=== PATIENT | female | born 1960 | race Caucasian/White ===

== ENCOUNTER → 2018-02-16 16:01 | Outpatient (CLI) | payer BC, SELFPAY | PROVIDERS: Family Provider Internal Medicine; PCP Internal Medicine; Visit Provider Obstetrics & Gynecology | DX: Z12.31 Encounter for screening mammogram for malignant neoplasm of breast (principal) | CPT/HCPCS: 77063; 77067 ==

== ENCOUNTER → 2018-05-03 08:57 | Outpatient (CLI) | payer BC, SELFPAY ==
[2018-05-03 10:10] LABS: ALB/GLOB Ratio 1.1 RATIO (0.9-2.4); AST(SGOT) 18 U/L (15-37); Alanine Aminotransfer ALT/SGPT 29 U/L (13-56); Albumin, Serum 3.7 g/dL (3.2-5.0); Alkaline Phosphatase 75 U/L (45-117); Anion Gap 7 (5-15); BUN 14 mg/dL (7-18); BUN/Creat Ratio 18.1 RATIO (10-20); Calcium,Total 8.9 mg/dL (8.5-10.1); Chloride 108 mmol/L (98-107); Cholesterol 153 mg/dL (200); Creatinine, Serum 0.77 mg/dL (0.55-1.02); EST Glomerular Filtration Rate 82 mL/min (>60); Est Glom Filt Rate - Afr Amer 99 mL/min (>60); Globulin 3.4 g/dL (2.2-4.2); Glucose 124 mg/dL (74-106); High Density Lipoprotein 50 mg/dL; Potassium 4.1 mmol/L (3.5-5.1); Protein, Total 7.1 g/dL (6.4-8.2); Sodium Level 143 mmol/L (136-145); Triglycerides 121 mg/dL; Very Low Density Lipoprotein 24 mg/dL (5-40)
== END ==
PROVIDERS: Family Provider Internal Medicine; PCP Internal Medicine; Referring Provider Internal Medicine; Visit Provider Internal Medicine
DX: E78.5 Hyperlipidemia, unspecified (principal)
CPT/HCPCS: 36415; 80053; 80061

== ENCOUNTER → 2018-08-18 07:53 | Outpatient (CLI) | payer OTHER, SELFPAY ==
[2018-08-09 08:10] VITALS: BMI 30.4
--- NOTE | 2018-08-18 08:50 | BD_ITS ---
STUDY: DUAL ENERGY X-RAY ABSORPTIOMETRY / DXA REASON FOR EXAM: Female, 58 years old. The patient is postmenopausal. TECHNIQUE: Bone Mineral Density (BMD) measurements of lumbar spine and bilateral hips were obtained. COMPARISON: None. FINDINGS: Lumbar Spine (L1-L4): g/cm2 (1.196) / T-score (0.1) / Z-score (1.1) Findings are suggestive of normal bone density with a low fracture risk. Left Femur Total: g/cm2 (0.970) / T-score (-0.3) / Z-score (0.5) Left Femoral Neck: g/cm2 (0.911) / T-score (-0.9) / Z-score (0.2) Right Femur Total: g/cm2 (0.908) / T-score (-0.8) / Z-score (0.0) Right Femoral Neck: g/cm2 (0.897) / T-score (-1.0) / Z-score (0.1) BD/Dexa Bone Density Study IMPRESSION: The patient is considered normal as outlined below according to World [employer] Organization (WHO) criteria with a low fracture risk. Reference Information: The T-score is the number of standard deviations above or below the standard which is normal for young adults at their peak bone mineral density. The World Health Organization (WHO) interprets the T-scores as follows: Above -1 Normal bone density Between -1 and -2.5 Osteopenia Equal to / or below -2.5 Osteoporosis As a practical clinical guideline, osteopenia may be graded as follows: Mild -1 through -1.5 Moderate -1.6 through -2.0 Severe -2.1 through -2.4 The Z-score is the number of standard deviations above or below age-matched controls. A Z-score of less than -1.5 would be considered abnormal. References: 1. NIH Osteoporosis and Related Bone Diseases http://www.osteo.org 2. International Society for Clinical Densitometry http://www.iscd.org 3. National Osteoporosis Foundation http://www.nof.org Electronically Signed: Kirk Eugene MD at 9:55 EST , Service support ,
== END ==
PROVIDERS: Family Provider Internal Medicine; PCP Internal Medicine; Referring Provider Internal Medicine; Visit Provider Internal Medicine
DX: Z78.0 Asymptomatic menopausal state (principal)
CPT/HCPCS: 77080

== ENCOUNTER → 2019-02-28 07:24 | Outpatient (CLI) | payer OTHER, SELFPAY ==
[2018-12-08 16:38] VITALS: BMI 30.4
[2019-02-21 08:07] VITALS: BMI 30.4
--- NOTE | 2019-02-28 07:30 | BI_ITS ---
MAMMOGRAPHY - BILATERAL SCREENING - CAD and RASHARD IMAGES REASON FOR EXAM: Female, 59 years old. Routine annual screening examination. PERTINENT HISTORY: Non-contributory. TECHNIQUE: Digital examination. Mediolateral oblique (MLO) and craniocaudad (CC) views of both breasts were obtained. CAD: CAD was performed on this study. Rashard images were reviewed. COMPARISON: None. FINDINGS: Breast Composition: There are scattered areas of fibroglandular density. There is a lobulated 8 mm partially obscured isodense mass in the superior medial, far posterior aspect of the right breast. Further workup is indicated. A 6 mm nodular masslike density is seen laterally in the right breast and requires additional workup. A 7 mm nodular density is seen in the medial, far anterior aspect of the right breast and requires additional workup. A 12 mm nodular masslike density in the superior aspect of the left breast is noted. Further workup is indicated. Benign round calcifications are seen in the left breast. Focal fibroglandular densities are noted in the left breast. No other significant abnormalities are identified. CAD and Rashard were reviewed. BI/SCREEN MAMM (CAD) W/RASHARD BILAT IMPRESSION: Further imaging evaluation recommended, as described above. The patient should return for LM views of the right and left breast as well as spot compression CC and MLO views of the right breast mass and right and left breast nodular masslike densities. An ultrasound will probably also be needed. ASSESSMENT CATEGORY: BIRADS Category 0: Incomplete. Need additional imaging evaluation. A letter regarding these results will be sent to the patient by the facility within 30 days. FOLLOW UP RECOMMENDATION: Additional Views are Recommended. (E) Approximately 10% of breast cancers are not detected by mammography. A normal mammogram should not delay biopsy of a clinically suspicious abnormality. [id number] Electronically Signed: Radha Kendall DO at 21:15 EDT Tel , Service support ,
== END ==
PROVIDERS: Family Provider Internal Medicine; PCP Internal Medicine; Referring Provider Internal Medicine; Visit Provider Internal Medicine
DX: Z12.31 Encounter for screening mammogram for malignant neoplasm of breast (principal)
CPT/HCPCS: 77063; 77067

== ENCOUNTER → 2019-03-03 08:49 | Outpatient (CLI) | payer OTHER, SELFPAY ==
[2019-02-21 08:07] VITALS: BMI 30.4
--- NOTE | 2019-03-03 08:50 | BI_ITS ---
MAMMOGRAPHY - BILATERAL DIAGNOSTIC REASON FOR EXAM: Female, 59 years old. Mammographic density PERTINENT HISTORY: No family history TECHNIQUE: Digital examination. Mediolateral oblique (MLO) and craniocaudad (CC) views of both breasts were obtained with spot compression. CAD: CAD was performed on this study. COMPARISON: 02/28/2019 FINDINGS: Breast Composition: There are scattered areas of fibroglandular density. Focal prominence visualized on both sides in the breast parenchyma persists upon spot compression mammogram bilaterally. Correlation with sonogram on the right side demonstrates 2 hypoechoic densities likely due to benign type hypoechoic nodules along the 10:00, and also 9:00 axis. Correlation with sonogram on the left side demonstrates no definite solid lesion, but with retroareolar ductal ectasia. No other significant abnormalities are identified. BI/DIAG MAMM W/CAD, BILAT IMPRESSION: 2 hypoechoic nodules on the right side, likely benign. There is ductal ectasia on the left. ASSESSMENT CATEGORY: BIRADS Category 3: Probably Benign - Short-Interval Follow-up Suggested. A letter regarding these results will be sent to the patient by the facility within 30 days. FOLLOW UP RECOMMENDATION: Follow up recommended within 6 months with bilateral repeated mammogram and sonogram. (C) Approximately 10% of breast cancers are not detected by mammography. A normal mammogram should not delay biopsy of a clinically suspicious abnormality. Electronically Signed: Tawanda Watson MD at 15:37 EDT Tel [phone], Service support ,
--- NOTE | 2019-03-03 08:50 | US_ITS ---
STUDY: ULTRASOUND BREAST - RIGHT REASON FOR EXAM: Female, 59 years old. Mammographic density TECHNIQUE: Axial and longitudinal images of the RIGHT breast were performed with a high resolution ultrasound transducer. COMPARISON: 02/28/2019. FINDINGS: RIGHT Breast: Hypoechoic nodule identified along the 10:00 axis, 5 cm from nipple, measuring 8 x 7 x 4 mm. Hypoechoic nodule identified along the 9:00 axis, extending from the nipple, measuring 4 x 6 x 5 mm. No other focal abnormality visualized on the right side. IMPRESSION: 2 hypoechoic nodules on the right side, and six-month follow-up with repeated sonogram is recommended to ensure non progression. ASSESSMENT CATEGORY: BIRADS Category 3: Probably Benign - Short-Interval Follow-up Suggested. A letter regarding these results will be sent to the patient by the facility within 30 days. Electronically Signed: Tawanda Watson MD at 11:51 EDT Tel [phone], Service support , STUDY: ULTRASOUND BREAST - LEFT REASON FOR EXAM: Female, 59 years old. Mammographic density TECHNIQUE: Axial and longitudinal images of the LEFT breast were performed with a high resolution ultrasound transducer. COMPARISON: 02/28/2019. FINDINGS: LEFT Breast: Sonogram of the left upper breast demonstrates extensive ductal ectasia in the retroareolar region, predominantly along the upper outer quadrant. No discrete nodule or cystic lesion visualized. US/Breast Complete Unilateral IMPRESSION: Extensive ductal ectasia predominantly along the upper outer quadrant. ASSESSMENT CATEGORY: BIRADS Category 3: Probably Benign - Short-Interval Follow-up Suggested. A letter regarding these results will be sent to the patient by the facility within 30 days. Electronically Signed: Tawanda Watson MD at 11:54 EDT Tel [phone], Service support ,
== END ==
PROVIDERS: Family Provider Internal Medicine; PCP Internal Medicine; Referring Provider Internal Medicine; Visit Provider Internal Medicine
DX: N63.10 Unspecified lump in the right breast, unspecified quadrant (principal); N60.42 Mammary duct ectasia of left breast
CPT/HCPCS: 76641; 76642; 77066

== ENCOUNTER → 2019-03-17 13:31 | Outpatient (CLI) | payer OTHER, SELFPAY ==
--- NOTE | 2019-03-17 | BRBX_PTH ---
PATIENT: MELYSSA HERNANDEZ LOC: [facility] U#:[id number] AGE/SX: 65/F ROOM: RE03/17/[address]: Dr. Alanis Howard MD : 1960 BED: DIS: SPEC #: [id number] RECD: 03/17/19 13:49 STATUS: GWEN REIván #: [id number] ANA: 03/17/19 00:[address]: Alanis Howard DEPT: SURGICAL PATHOLOGY RECD BY: Jovanni Vega ENTERED: 03/17/19 13:49 SP TYPE: BREAST BX OTHR DR: Dr. Roberto Murray MD Tissues: Right breast, NOS Procedures: Surgery Specimen Level IV HEADER OPERATION: Ultrasound-guided right breast biopsy PRE-OP DIAGNOSIS: Breast mass, right TISSUE SUBMITTED: Right breast FIXATION TIME: 9.5 hours MICROSCOPIC DIAGNOSIS Right breast, ultrasound-guided core biopsy: Fibroadenoma. Negative for atypia or malignancy. SJ:delonte 03/18/19 MICROSCOPIC DESCRIPTION Slides are reviewed. GROSS DESCRIPTION Received in fixative is one container labeled with the patient's name and designated right breast. The specimen consists of multiple elongated fragments of huynh-yellow fibroadipose tissue that in aggregate measure 1.5 x 1 x 0.1 cm. The entire specimen is submitted in one cassette. / CHERI:delonte 03/17/19 TC:1 CPT: 70547
[2019-03-17 10:08] VITALS: BMI 30.4
== END ==
PROVIDERS: Family Provider Internal Medicine; PCP Internal Medicine; Referring Provider Surgery; Visit Provider Surgery
DX: N63.10 Unspecified lump in the right breast, unspecified quadrant (principal)
CPT/HCPCS: 88305

== ENCOUNTER → 2019-06-10 08:51 | Outpatient (CLI) | payer OTHER, SELFPAY ==
[2019-03-17 10:08] VITALS: BMI 30.4
[2019-06-10 10:38] LABS: Absolute Lymphocyte Count 2.04 X10^3/uL (0.83-4.51); Absolute Neutrophil Count 3.3 X10^3/uL (2.0-7.7); Basophil# 0.03 X10^3/uL; Basophil% 0.5 % (0-1); Eosinophils% 1.7 % (0-5); Hematocrit 43.7 % (37-47); Hemoglobin 14.9 g/dL (12.0-15.0); Lymphocyte # 2.04 X10^3/ul (4.0); Lymphocyte % 34.6 % (19-41); Mean Corp Hgb Conc 34.1 g/dL (32-36); Mean Corpuscular Hgb 30.4 pg (27.0-32.0); Mean Corpuscular Volume 89.2 fL (81-99); Mean Platelet Vol. 11.1 fl (6.2-12.0); Monocyte# 0.41 X10^3/uL; NRBC Flagged by Analyzer 0 % (0-5); Platelet Count 198 K/mm3 (150-450); RBC Distribution Width CV 11.9 % (11.6-14.6); RBC Distribution Width SD 38.3 fl (35.1-43.9); White Blood Count 5.9 K/mm3 (4.4-11.0)
[2019-06-10 11:09] LABS: ALB/GLOB Ratio 1.2 RATIO (0.9-2.4); AST(SGOT) 16 U/L (15-37); Alanine Aminotransfer ALT/SGPT 21 U/L (13-56); Albumin, Serum 3.8 g/dL (3.2-5.0); Alkaline Phosphatase 75 U/L (45-117); Anion Gap 8 (5-15); BUN 15 mg/dL (7-18); BUN/Creat Ratio 18.2 RATIO (10-20); Calcium,Total 9.4 mg/dL (8.5-10.1); Chloride 105 mmol/L (98-107); Cholesterol 168 mg/dL (200); Creatinine, Serum 0.82 mg/dL (0.55-1.02); EST Glomerular Filtration Rate 76 mL/min (>60); Est Glom Filt Rate - Afr Amer 92 mL/min (>60); Globulin 3.3 g/dL (2.2-4.2); Glucose 106 mg/dL (74-106); High Density Lipoprotein 50 mg/dL; Protein, Total 7.1 g/dL (6.4-8.2); Sodium Level 140 mmol/L (136-145); Triglycerides 133 mg/dL; Very Low Density Lipoprotein 27 mg/dL (5-40)
== END ==
PROVIDERS: Family Provider Internal Medicine; PCP Internal Medicine; Referring Provider Internal Medicine; Visit Provider Internal Medicine
DX: L66.1 Lichen planopilaris (principal); I10 Essential (primary) hypertension; E78.5 Hyperlipidemia, unspecified
CPT/HCPCS: 36415; 80053; 80061; 85025

== ENCOUNTER → 2019-07-23 09:12 | Outpatient (CLI) | payer OTHER, SELFPAY ==
[2019-06-13 08:20] VITALS: BMI 30.4
[2019-07-23 10:41] LABS: Anion Gap 6 (5-15); BUN 11 mg/dL (7-18); BUN/Creat Ratio 12.9 RATIO (10-20); Calcium,Total 9.2 mg/dL (8.5-10.1); Chloride 109 mmol/L (98-107); Creatinine, Serum 0.85 mg/dL (0.55-1.02); EST Glomerular Filtration Rate 73 mL/min (>60); Est Glom Filt Rate - Afr Amer 88 mL/min (>60); Glucose 118 mg/dL (74-106); Sodium Level 143 mmol/L (136-145)
== END ==
PROVIDERS: Family Provider Internal Medicine; PCP Internal Medicine; Referring Provider Internal Medicine; Visit Provider Internal Medicine
DX: I10 Essential (primary) hypertension (principal)
CPT/HCPCS: 36415; 80048

== ENCOUNTER → 2019-12-12 08:30 | Outpatient (CLI) | payer OTHER, SELFPAY ==
[2019-12-12 08:09] VITALS: BMI 30.4
[2019-12-12 13:38] LABS: Anion Gap 7 (5-15); BUN 18 mg/dL (7-18); BUN/Creat Ratio 22.2 RATIO (10-20); Calcium,Total 9.3 mg/dL (8.5-10.1); Chloride 107 mmol/L (98-107); Creatinine, Serum 0.81 mg/dL (0.55-1.02); EST Glomerular Filtration Rate 77 mL/min (>60); Est Glom Filt Rate - Afr Amer 93 mL/min (>60); Glucose 103 mg/dL (74-106); Potassium 3.9 mmol/L (3.5-5.1); Sodium Level 141 mmol/L (136-145)
== END ==
PROVIDERS: PCP Internal Medicine; Visit Provider Internal Medicine
DX: I10 Essential (primary) hypertension (principal)
CPT/HCPCS: 80048

== ENCOUNTER → 2020-03-08 17:00 | Outpatient (CLI) | payer OTHER, SELFPAY ==
[2020-02-27 16:36] VITALS: BMI 30.4
--- NOTE | 2020-03-08 16:59 | BI_ITS ---
MAMMOGRAPHY - BILATERAL SCREENING REASON FOR EXAM: Female, 60 years old. Routine annual screening examination. PERTINENT HISTORY: Non-contributory. TECHNIQUE: Digital bilateral breast rashard (3D mammographic acquisition) in the CC and MLO projections. 2-D mediolateral oblique (MLO) and craniocaudad (CC) views of both breasts were obtained. CAD: Full Field Digital Mammography with Computer Added Detection was performed. COMPARISON: Comparison is made with prior study dated 03/03/2019 and 02/28/2019. FINDINGS: Breast Composition: The breasts are heterogeneously dense, which may obscure small masses. There are no dominant masses or suspicious calcifications. A tissue clip marker is now seen in the upper slightly lateral aspect of the right breast from prior ultrasound-guided biopsy. No other significant abnormalities are identified. There has been no significant change since the prior study. BI/SCREEN MAMM (CAD) W/RASHARD BILAT IMPRESSION: Stable bilateral screening mammogram. Yearly follow-up mammogram recommended. (A) ASSESSMENT CATEGORY: BIRADS Category 2: Benign. A letter regarding these results will be sent to the patient by the facility within 30 days. Approximately 10% of breast cancers are not detected by mammography. A normal mammogram should not delay biopsy of a clinically suspicious abnormality. [id number] Electronically Signed: Kirk Eugene, at 8:52 EDT , Service support ,
== END ==
PROVIDERS: PCP Internal Medicine; Referring Provider Obstetrics & Gynecology; Visit Provider Obstetrics & Gynecology
DX: Z12.31 Encounter for screening mammogram for malignant neoplasm of breast (principal)
CPT/HCPCS: 77063; 77067

== ENCOUNTER → 2020-04-16 08:33 | Outpatient (CLI) | payer OTHER, SELFPAY ==
[2020-04-16 08:16] VITALS: BMI 30.4
[2020-04-16 12:14] LABS: Absolute Lymphocyte Count 1.62 X10^3/uL (0.83-4.51); Basophil# 0.04 X10^3/uL; Basophil% 0.6 % (0-1); Eosinophil# 0.06 X10^3/uL; Hematocrit 41.4 % (37-47); Hemoglobin 14.7 g/dL (12.0-15.0); Lymphocyte # 1.62 X10^3/ul (4.0); Mean Corp Hgb Conc 35.5 g/dL (32-36); Mean Platelet Vol. 11.5 fl (6.2-12.0); Monocyte# 0.45 X10^3/uL; Monocyte% 7.2 % (0-10); NRBC Flagged by Analyzer 0 % (0-5); Neutrophil # 4.04 X10^3/uL (2.7-7.7); Platelet Count 162 K/mm3 (150-450); RBC Distribution Width CV 12.8 % (11.6-14.6); RBC Distribution Width SD 40.6 fl (35.1-43.9); Red Blood Count 4.45 M/mm3 (4.2-5.4); White Blood Count 6.2 K/mm3 (4.4-11.0)
[2020-04-16 13:00] LABS: AST(SGOT) 10 U/L (15-37); Alanine Aminotransfer ALT/SGPT 26 U/L (13-56); Albumin, Serum 3.7 g/dL (3.2-5.0); Alkaline Phosphatase 59 U/L (45-117); Anion Gap 5 (5-15); BUN 14 mg/dL (7-18); BUN/Creat Ratio 17.8 RATIO (10-20); Calcium,Total 8.9 mg/dL (8.5-10.1); Chloride 108 mmol/L (98-107); Cholesterol 168 mg/dL (200); Creatinine, Serum 0.79 mg/dL (0.55-1.02); EST Glomerular Filtration Rate 80 mL/min (>60); Est Glom Filt Rate - Afr Amer 96 mL/min (>60); Globulin 3.6 g/dL (2.2-4.2); Glucose 98 mg/dL (74-106); High Density Lipoprotein 71 mg/dL; Potassium 3.8 mmol/L (3.5-5.1); Protein, Total 7.3 g/dL (6.4-8.2); Sodium Level 140 mmol/L (136-145); Triglycerides 145 mg/dL; Very Low Density Lipoprotein 29 mg/dL (5-40)
== END ==
PROVIDERS: PCP Internal Medicine; Visit Provider Internal Medicine
DX: E78.5 Hyperlipidemia, unspecified (principal); I10 Essential (primary) hypertension
CPT/HCPCS: 36415; 80053; 80061; 85025

== ENCOUNTER → 2020-09-07 14:17 | Outpatient (CLI) | payer OTHER, SELFPAY ==
[2020-07-17 08:06] VITALS: BMI 32.1
== END ==
PROVIDERS: PCP Internal Medicine; Referring Provider Nurse Practitioner Family; Visit Provider Nurse Practitioner Family
DX: Z11.59 Encounter for screening for other viral diseases (principal)
CPT/HCPCS: 87635; U0005; U0003

== ENCOUNTER → 2020-10-16 08:25 | Outpatient (CLI) | payer OTHER, SELFPAY ==
[2020-10-16 08:07] VITALS: BMI 32.5
[2020-10-16 12:51] LABS: Anion Gap 7 (5-15); BUN 12 mg/dL (7-18); BUN/Creat Ratio 15.3 RATIO (10-20); Calcium,Total 9.1 mg/dL (8.5-10.1); Chloride 110 mmol/L (98-107); Creatinine, Serum 0.78 mg/dL (0.55-1.02); EST Glomerular Filtration Rate 80 mL/min (>60); Est Glom Filt Rate - Afr Amer 97 mL/min (>60); Glucose 119 mg/dL (74-106); Sodium Level 143 mmol/L (136-145)
== END ==
PROVIDERS: PCP Internal Medicine; Referring Provider Internal Medicine; Visit Provider Internal Medicine
DX: I10 Essential (primary) hypertension (principal)
CPT/HCPCS: 36415; 80048

== ENCOUNTER → 2020-11-05 08:50 | Outpatient (CLI) | payer OTHER, SELFPAY ==
[2020-10-16 08:07] VITALS: BMI 32.5
--- NOTE | 2020-11-05 08:52 | CDU_ITS ---
Reason For Study: CAROTID BRUIT Rt. Velocities/BP Lt. Velocities/BP Prox CCA 90.7/19.0 cm/sec. Prox CCA 107.6/27.2 cm/sec. Mid CCA 88.1/24.2 cm/sec. Mid CCA 93.0/23.6 cm/sec. Dist CCA 66.0/13.8 cm/sec. Dist CCA 82.0/25.4 cm/sec. Prox ICA 79.4/28.6 cm/sec. Prox ICA 76.0/19.5 cm/sec. Mid ICA 101.6/33.8 cm/sec. Mid ICA 91.6/37.6 cm/sec. Dist ICA 139.6/54.0 cm/sec. Dist ICA 107.6/44.9 cm/sec. Rt. ICA/CCA = 139.6/90.7=1.5. Lt. ICA/CCA = 107.6/107.6=1.0. Prox ECA 92.0/12.5 cm/sec. Prox ECA 77.2/14.6 cm/sec. Rt. Vert. 32.1/13.4 cm/sec. Lt. Vert. 58.4/22.8 cm/sec. Right Extracranial There is intimal thickening but no significant atherosclerotic plaque noted in the right common carotid artery. There is intimal thickening but no significant atherosclerotic plaque noted in the right internal carotid artery. The tortuous nature of the right internal carotid artery may result in flow velocities overestimating the degree of stenosis. There is no significant atherosclerotic plaque noted in the right external carotid artery. Antegrade flow is noted in the right vertebral artery. Left Extracranial There is intimal thickening but no significant atherosclerotic plaque noted in the left common carotid artery. There is intimal thickening but no significant atherosclerotic plaque noted in the left internal carotid artery. The tortuous nature of the left internal carotid artery may result in flow velocities overestimating the degree of stenosis. There is no significant atherosclerotic plaque noted in the left external carotid artery. Antegrade flow is noted in the left vertebral artery. Procedure Carotid Duplex [id number]. Exam performed in department. VL/Carotid Duplex Ultrasound Interpretation Summary Intimal thickening but no hemodynamically significant plaque of the right inter nal carotid artery Tortuosity of the right internal carotid artery especially distally with increa sed velocity at 139 cm second peak slight flow consistent with 50 to 69% stenosis but this may be a n overestimation secondary to tortuosity. No significant plaque identified. Less than 50% stenosis right external carotid artery Intimal thickening left proximal internal carotid artery with less than 50% lee nosis Less than 50% stenosis left external carotid artery Patent antegrade vertebrals bilaterally Ordering Physician: Roberto Murray Referring Physician: Roberto Murray Performed By: Zenaida Joyner, RDREMA, RVT
== END ==
PROVIDERS: PCP Internal Medicine; Referring Provider Internal Medicine; Visit Provider Internal Medicine
DX: R09.89 Other specified symptoms and signs involving the circulatory and respiratory systems (principal); I77.9 Disorder of arteries and arterioles, unspecified
CPT/HCPCS: 93880

== ENCOUNTER → 2021-03-27 16:12 | Outpatient (CLI) | payer OTHER, SELFPAY ==
--- NOTE | 2021-03-27 16:14 | BI_ITS ---
MAMMOGRAPHY - BILATERAL SCREENING REASON FOR EXAM: Female, 61 years old. Routine annual screening examination. PERTINENT HISTORY: Non-contributory. TECHNIQUE: Digital bilateral breast rashard (3D mammographic acquisition) in the CC and MLO projections. 2-D mediolateral oblique (MLO) and craniocaudad (CC) views of both breasts were obtained. CAD: Full Field Digital Mammography with Computer Added Detection was performed. COMPARISON: Comparison is made with prior study dated 03/08/2020 and 03/03/2019. FINDINGS: Breast Composition: The breasts are heterogeneously dense, which may obscure small masses. There are no dominant masses or suspicious calcifications. A tissue clip marker is once again seen in the upper slightly lateral aspect of the right breast [history of prior ultrasound-guided biopsy.] No other significant abnormalities are identified. There has been no significant change since the prior study. BI/SCRN MAMM (CAD)W/RASHARD BILAT IMPRESSION: Stable bilateral screening mammogram. Yearly follow-up mammogram recommended. (A) ASSESSMENT CATEGORY: BIRADS Category 2: Benign. A letter regarding these results will be sent to the patient by the facility within 30 days. Approximately 10% of breast cancers are not detected by mammography. A normal mammogram should not delay biopsy of a clinically suspicious abnormality. [id number] Electronically Signed: Kirk Eugene MD at 7:56 EDT , Service support ,
== END ==
PROVIDERS: PCP Internal Medicine; Referring Provider Obstetrics & Gynecology; Visit Provider Obstetrics & Gynecology
DX: Z12.31 Encounter for screening mammogram for malignant neoplasm of breast (principal)
CPT/HCPCS: 77063; 77067

== ENCOUNTER 2021-05-13 07:49 | Day surgery (SDC) | payer OTHER, SELFPAY ==
[2021-05-13] VITALS (7 sets, daily range): BP systolic 89–118; BP diastolic 58–76; PULSE 50–84; RESP 16–18; TEMP 35.7–36.2; O2SAT 96–100; BMI 31.2
--- NOTE | 2021-05-13 | COLBX_PTH ---
PATIENT: MELYSSA HERNANDEZ LOC: [facility] U#:[id number] AGE/SX: 61/F ROOM: RE05/13/[address]: Dr. Alanis Howard MD : 1960 BED: DIS: 05/13/2021 SPEC #: [id number] RECD: 05/13/21 11:44 STATUS: GWEN RODOLFO #: [id number] ANA: 05/13/21 00:[address]: Alanis Howard DEPT: SURGICAL PATHOLOGY RECD BY: Jovanni Vega ENTERED: 05/13/21 11:45 SP TYPE: COLON BX OT DR: Dr. Roberto Murray MD Tissues: A - Sigmoid colon biopsy B - Sigmoid colon biopsy Procedures: Surgery Specimen Level IV HEADER OPERATION: Colonoscopy ? open access (MAC) PRE-OP DIAGNOSIS: Screening for colon cancer TISSUE SUBMITTED: A ? Sigmoid polyp biopsy, B - Sigmoid polyp biopsy #2 MICROSCOPIC DIAGNOSIS A. Sigmoid colon polyp, biopsy: Tubular adenoma. B. Sigmoid colon polyp #2, biopsy: Focal hyperplastic change. AM:delonte 05/14/2021 MICROSCOPIC DESCRIPTION Slides are reviewed. GROSS DESCRIPTION A - Received in fixative is one container labeled with the patient's name and designated sigmoid polyp biopsy. The specimen consists of one irregular fragment of light huynh soft tissue that measures 0.4 x 0.2 x 0.1 cm. The specimen is totally submitted in one cassette. B - Received in fixative is one container labeled with the patient's name and designated sigmoid polyp biopsy #2. The specimen consists of one irregular fragment of light huynh soft tissue that measures 0.3 x 0.3 x 0.1 cm. The specimen is totally submitted in one cassette. / SJ:delonte 05/13/21 TC:5 [facility]: [id number] x2
--- NOTE | 2021-05-13 07:55 | HP.PCM_ITS ---
HPI - General HPI Narrative MELYSSA HERNANDEZ, is a 61 F who presents for a screening colonoscopy. Patient had a previous colonoscopy 10 years ago which she states she had 1 benign polyp at that time. Patient denies any family history of colon cancer. Patient has bowel movements daily denies any blood. Denies any chronic abdominal pain /nausea/vomiting/reflux. [facility] Medical History (Updated 05/13/21 @ 07:[address] Alanis Howard MD) Health care maintenance Hemorrhoids Hyperlipidemia Hypertension Lichen amyloidosus Lichen planopilaris Right knee pain Wears contact lenses Wears hearing aid Home Medications multivitamin 1 tab PO QDAY 02/16/18 [History Last Taken Unknown] hydroxychloroquine 200 mg tablet 200 mg PO BID 02/27/20 [History Last Taken Unknown] lactobacillus combination no.9 4 billion cell capsule 4,000 mmu cells PO DAILY 02/27/20 [History Last Taken Unknown] lisinopril 20 mg tablet 20 mg PO DAILY #90 tab 07/05/20 [Rx Last Taken Unknown] doxycycline hyclate 20 mg tablet 100 mg PO DAILY tablet 10/16/20 [History Last Taken Unknown] apremilast 30 mg tablet 30 mg PO ONCE tab 04/01/21 [History Last Taken Unknown] aspirin 81 mg tablet,delayed release 81 mg PO DAILY 04/01/21 [History Last Taken Unknown] clobetasol 0.05 % topical cream 1 applic TOPICAL DAILY 04/01/21 [History Last Taken Unknown] rosuvastatin [Crestor] 5 mg PO DAILY 05/08/21 [History Last Taken Unknown] Allergy/AdvReac Type Severity Reaction Status Date / Time Penicillins Allergy Intermediate Hives Verified 05/08/21 09:49 Tetracyclines Allergy Intermediate Nausea Verified 05/08/21 09:49 Family History Mother Blood clot in vein High cholesterol Hypertension Skin cancer Grandmother Colon cancer Father Myocardial infarction High cholesterol Hypertension Heart disease Surgical History History of hysterectomy History of right breast biopsy (~03/2019) Social History Smoking Status: Never smoker alcohol intake: current alcohol intake frequency: a few times a month Alcohol type: wine substance use type: does not use caffeine: Yes what type of physical activity do you participate in: walking frequency: 3-4 times per week seatbelt use: always do you feel safe at home: Yes additional social history: -[place]- Retired Patient is a oil field laborer Past Medical/Surgical History Planned Operation Planned Operative Procedure/s: Colonoscopy Previous Hospitalizations/Surgeries HX Hospitalizations: No Any Problems With Anesthesia: Yes (PONV) You/Your Family Experience Fever (Hyperthermia) With Anes: No Cholinesterase deficiency: No Cardiovascular Hx of Irregular Heartbeat and/or Afib: No Hx Heart Attack: No Hx Congestive Heart Failure: No Hx Hypertension: Yes Hx Internal Defibrillator: No Hx Pacemaker: No Respiratory Hx Chronic Obstructive Pulmonary Disease (COPD): No Hx Asthma: No Hx Emphysema: No Hx Sleep Apnea: No Hx Respiratory Tract Infection/Cold (presently): No Do You Snore Loudly (louder than talking or can be heard): No Do You Often Feel Tired/ Fatigued/ Sleepy Dring Daytime?: No Has Anyone Observed You Stop Breathing During Sleep?: No Result (for STOP score): Negative Smoking Status: Never smoker Gastrointestinal Hx Gastroesophageal Reflux: Yes Controlled With Meds: Yes Hx Ulcer: No Neurological Hx Seizures: No Hx Multiple Sclerosis: No Hx Parkinson's Disease: No Hx Head/Neck Injury: No Hx Headaches: No Hx Back Injury/Pain: Yes Does patient have nerve stimulator: No Reproduction : No Psycho/Social Hx Anxiety: No Hx Depression: No Allergies Penicillins Allergy (Intermediate, Verified 05/08/21 09:49) Hives Tetracyclines Allergy (Intermediate, Verified 05/08/21 09:49) Nausea Discharge Is Pt Admitted From a [facility], or a Residential: No Who Could Help: After D/C, Where Do you Plan to Go: Return Home Physical Exam Const alert, oriented x3 and no apparent distress HEENT normocephalic and head/scalp atraumatic Resp normal respiratory effort Cardio regular rate GI soft to palpation and non-tender; Negative for non-distended Palpation: Negative for guarding Extremity no clubbing, cyanosis or edema Neuro CN's II-XII intact bilaterally Psych mental status grossly normal Assessment & Plan Assessment/Plan (1) Screening for colon cancer: Procedure Criteria Type of Procedure Procedure Type: Elective Elective Risks - COVID COVID Risk Discussion: The surgeon/proceduralist and patient have discussed in detail the risk of exposure to and/or potential harm posed by the COVID-19 virus with having a surgery/procedure at this time versus the risk of delaying the surgery/procedure. It is not possible to know either the risk of delaying the surgery or procedure or chance of getting an infection with perfect accuracy, but a joint decision was made between the patient and the surgeon/proceduralist to proceed at this time with the scheduled surgery/procedure as indicated on the consent form. Surgery Risks - Colonoscopy Risks Include but are not Limited To: Risks include but are not limited to: Bleeding, perforation requiring further surgery, inability to complete colonoscopy requiring barium enema.
[2021-05-13] MEDS: Lactated Ringers 1,000 ML 100 ML IV (08:21)
--- NOTE | 2021-05-13 09:24 | OP.COLON_ITS ---
Patient Name: Korin Posey Procedure Date: 05/13/2021 8:42 AM Date of : 1960 Age: 61 Procedure: Colonoscopy Indications: Screening for colorectal malignant neoplasm Providers: Alanis Howard MD Medicines: Monitored Anesthesia Care Patient Profile: This is a 61 year old female. Last Colonoscopy: 10 years ago. Complications: No immediate complications. Procedure: Pre-Anesthesia Assessment: - Prior to the procedure, a History and Physical was performed, and patient medications and allergies were reviewed. The patient's tolerance of previous anesthesia was also reviewed. The risks and benefits of the procedure and the sedation options and risks were discussed with the patient. All questions were answered, and informed consent was obtained. Prior Anticoagulants: The patient has taken no previous anticoagulant or antiplatelet agents. ASA Grade Assessment: Per anesthesia. After reviewing the risks and benefits, the patient was deemed in satisfactory condition to undergo the procedure. After I obtained informed consent, the scope was passed under direct vision. Throughout the procedure, the patient's blood pressure, pulse, and oxygen saturations were monitored continuously. The adult colonoscope was introduced through the anus and advanced to the cecum, identified by the appendiceal orifice, ileocecal valve and palpation. The colonoscopy was performed without difficulty. The patient tolerated the procedure well. The quality of the bowel preparation was good. Scope In: 8:54:48 AM Scope Withdrawal Time 0 hours 9 minutes 1 second Scope Out: 9:12:17 AM Total Procedure Duration Time 0 hours 17 minutes 29 seconds Findings: Two sessile polyps were found in the sigmoid colon. The polyps were less than 5 mm in size. These polyps were removed with a cold biopsy forceps. Resection and retrieval were complete. A few small-mouthed diverticula were found in the descending colon and transverse colon. The exam was otherwise without abnormality. Hemorrhoids were found on perianal exam. Impression: - Two less than 5 mm polyps in the sigmoid colon, removed with a cold biopsy forceps. Resected and retrieved. - Diverticulosis in the descending colon and in the transverse colon. - The examination was otherwise normal. - Hemorrhoids found on perianal exam. Recommendation: - Discharge patient to home. - High fiber diet. - Continue present medications. - Await pathology results. - Repeat colonoscopy in 5-10 years for surveillance based on pathology results. Procedure Code(s): --- Professional --- 87082, PT, Colonoscopy, flexible; with biopsy, single or multiple Diagnosis Code(s): --- Professional --- Z12.11, Encounter for screening for malignant neoplasm of colon D12.5, Benign neoplasm of sigmoid colon K64.9, Unspecified hemorrhoids K57.30, Diverticulosis of large intestine without perforation or abscess without bleeding CPT copyright 2017 [employer]. All rights reserved. The codes documented in this report are preliminary and upon lead developer review may be revised to meet current compliance requirements. MD Alanis Booker MD 05/13/2021 9:23:16 AM This report has been signed electronically. Number of Addenda: 0 Note Initiated On: 05/13/2021 8:42 AM
--- NOTE | 2021-05-13 09:24 | OP.CCLET_ITS ---
05/13/2021 Roberto Murray MD [address] [place] [address] [place] [address] Re : Colonoscopy procedure for Korin Posey Dear Dr. Murray This procedure was performed on Thursday, May 13, 2021. My impressions and recommendations are as follows: Impressions : - Two less than 5 mm polyps in the sigmoid colon, removed with a cold biopsy forceps. Resected and retrieved. - Diverticulosis in the descending colon and in the transverse colon. - The examination was otherwise normal. - Hemorrhoids found on perianal exam. Recommendations : - Discharge patient to home. - High fiber diet. - Continue present medications. - Await pathology results. - Repeat colonoscopy in 5-10 years for surveillance based on pathology results. My findings are described in the full procedure note, which is enclosed. If I can be of further assistance, please feel free to contact me at Doctor phone number(s): , Work: . Sincerely, MD Alanis Booker MD 05/13/2021 9:23:16 AM This report has been signed electronically.
== END 2021-05-13 10:07 | disposition home or self-care (01) ==
LOC: EN 07:49 → AC 07:50
PROVIDERS: PCP Internal Medicine; Referring Provider Internal Medicine; Visit Provider Surgery
PROC: 0DJD8ZZ Inspection of Lower Intestinal Tract, Via Natural or Artificial Opening Endoscopic (ICD-10-PCS; CPT 45378; principal; 2021-05-13 09:10)
DX: D12.5 Benign neoplasm of sigmoid colon (principal); K57.30 Diverticulosis of large intestine without perforation or abscess without bleeding; K64.9 Unspecified hemorrhoids; E78.5 Hyperlipidemia, unspecified; I10 Essential (primary) hypertension; K21.9 Gastro-esophageal reflux disease without esophagitis; Z79.82 Long term (current) use of aspirin; Z79.899 Other long term (current) drug therapy
CPT/HCPCS: 45380; 88305; J7120; J2405

== ENCOUNTER → 2021-06-26 08:06 | Outpatient (CLI) | payer OTHER, SELFPAY ==
[2021-06-26 12:22] LABS: Absolute Neutrophil Count 3.3 X10^3/uL (2.0-7.7); Basophil# 0.03 X10^3/uL; Basophil% 0.5 % (0-1); Eosinophil# 0.08 X10^3/uL; Eosinophils% 1.4 % (0-5); Hematocrit 41.8 % (37-47); Lymphocyte % 31.4 % (19-41); Mean Corp Hgb Conc 33.5 g/dL (32-36); Mean Corpuscular Hgb 30.2 pg (27.0-32.0); Mean Corpuscular Volume 90.3 fL (81-99); Mean Platelet Vol. 11.2 fl (6.2-12.0); Monocyte# 0.47 X10^3/uL; Monocyte% 8.2 % (0-10); NRBC Flagged by Analyzer 0 % (0-5); Neutrophil # 3.34 X10^3/uL (2.7-7.7); Neutrophil % 58.3 % (47-70); Platelet Count 175 K/mm3 (150-450); RBC Distribution Width CV 12.2 % (11.6-14.6); RBC Distribution Width SD 40.3 fl (35.1-43.9); Red Blood Count 4.63 M/mm3 (4.2-5.4); White Blood Count 5.7 K/mm3 (4.4-11.0)
[2021-06-26 12:34] LABS: ALB/GLOB Ratio 1.1 RATIO (0.9-2.4); AST(SGOT) 20 U/L (15-37); Alanine Aminotransfer ALT/SGPT 26 U/L (13-56); Albumin, Serum 3.7 g/dL (3.2-5.0); Alkaline Phosphatase 72 U/L (45-117); Anion Gap 7 (5-15); BUN 16 mg/dL (7-18); BUN/Creat Ratio 19.4 RATIO (10-20); Calcium,Total 9.4 mg/dL (8.5-10.1); Chloride 108 mmol/L (98-107); Cholesterol 163 mg/dL (200); Creatinine, Serum 0.83 mg/dL (0.55-1.02); EST Glomerular Filtration Rate 75 mL/min (>60); Est Glom Filt Rate - Afr Amer 91 mL/min (>60); Globulin 3.3 g/dL (2.2-4.2); Glucose 102 mg/dL (74-106); High Density Lipoprotein 66 mg/dL; Sodium Level 141 mmol/L (136-145); Triglycerides 136 mg/dL; Very Low Density Lipoprotein 27 mg/dL (5-40)
== END ==
PROVIDERS: PCP Internal Medicine; Visit Provider Internal Medicine
DX: L66.1 Lichen planopilaris (principal); I10 Essential (primary) hypertension; E78.5 Hyperlipidemia, unspecified; Z79.899 Other long term (current) drug therapy
CPT/HCPCS: 36415; 80053; 80061; 85025

== ENCOUNTER → 2021-12-27 | Outpatient (CLI) | payer OTHER, SELFPAY ==
[2021-12-27 16:41] LABS: Absolute Lymphocyte Count 0.97 X10^3/uL (0.83-4.51); Absolute Neutrophil Count 4.5 X10^3/uL (2.0-7.7); Basophil# 0.03 X10^3/uL; Basophil% 0.5 % (0-1); Eosinophil# 0.21 X10^3/uL; Eosinophils% 3.4 % (0-5); Hematocrit 44.3 % (37-47); Hemoglobin 14.8 g/dL (12.0-15.0); Lymphocyte # 0.97 X10^3/ul (0.83-4.51); Lymphocyte % 15.7 % (19-41); Mean Corp Hgb Conc 33.4 g/dL (32-36); Mean Corpuscular Hgb 29.8 pg (27.0-32.0); Mean Corpuscular Volume 89.3 fL (81-99); Mean Platelet Vol. 11.4 fl (6.2-12.0); Monocyte# 0.51 X10^3/uL; Monocyte% 8.2 % (0-10); NRBC Flagged by Analyzer 0 % (0-5); Neutrophil # 4.45 X10^3/uL (2.7-7.7); Neutrophil % 71.9 % (47-70); Platelet Count 198 K/mm3 (150-450); RBC Distribution Width CV 12.4 % (11.6-14.6); RBC Distribution Width SD 40.5 fl (35.1-43.9); Red Blood Count 4.96 M/mm3 (4.2-5.4); White Blood Count 6.2 K/mm3 (4.4-11.0)
[2021-12-27 17:26] LABS: AST(SGOT) 194 U/L (15-37); Alanine Aminotransfer ALT/SGPT 480 U/L (13-56); Albumin, Serum 3.8 g/dL (3.2-5.0); Alkaline Phosphatase 184 U/L (45-117); Anion Gap 8 (5-15); BUN 8 mg/dL (7-18); Calcium,Total 9.3 mg/dL (8.5-10.1); Chloride 107 mmol/L (98-107); EST Glomerular Filtration Rate 78 mL/min (>60); Est Glom Filt Rate - Afr Amer 94 mL/min (>60); Globulin 3.7 g/dL (2.2-4.2); Glucose 130 mg/dL (74-106); Protein, Total 7.5 g/dL (6.4-8.2); Sodium Level 140 mmol/L (136-145); T4 Free Direct 1.25 ng/dL (0.76-1.46); Thyroid Stim Hormone (TSH) 0.52 uIU/mL (0.358-3.74)
== END | disposition home or self-care (01) ==
LOC: BIMLAB 15:08
PROVIDERS: PCP Internal Medicine; Referring Provider Internal Medicine; Visit Provider Internal Medicine
DX: F41.1 Generalized anxiety disorder (principal)
CPT/HCPCS: 36415; 80053; 84439; 84443; 85025

== ENCOUNTER → 2022-01-07 | Outpatient (CLI) | payer OTHER, SELFPAY ==
[2022-01-07 12:36] LABS: AST(SGOT) 62 U/L (15-37); Alanine Aminotransfer ALT/SGPT 214 U/L (13-56); Albumin, Serum 3.5 g/dL (3.2-5.0); Alkaline Phosphatase 116 U/L (45-117); Anion Gap 8 (5-15); BUN 13 mg/dL (7-18); BUN/Creat Ratio 17.5 RATIO (10-20); Calcium,Total 9.4 mg/dL (8.5-10.1); Chloride 107 mmol/L (98-107); Creatinine, Serum 0.74 mg/dL (0.55-1.02); EST Glomerular Filtration Rate 85 mL/min (>60); Est Glom Filt Rate - Afr Amer 103 mL/min (>60); GGTP 238 U/L (5-55); Globulin 3.4 g/dL (2.2-4.2); Glucose 130 mg/dL (74-106); Protein, Total 6.9 g/dL (6.4-8.2); Sodium Level 140 mmol/L (136-145)
[2022-01-07 13:12] LABS: Hepatitis B Surface Antigen Non-Reactive (Nonreactive); Hepatitis C Antibody Non-Reactive (Nonreactive)
[2022-01-08 13:21] LABS: Hepatitis A IgM Antibody Negative (Negative)
== END | disposition home or self-care (01) ==
LOC: BIMLAB 08:04
PROVIDERS: PCP Internal Medicine; Referring Provider Internal Medicine; Visit Provider Internal Medicine
DX: R74.8 Abnormal levels of other serum enzymes (principal)
CPT/HCPCS: 36415; 80053; 82977; 86709; 86803; 87340

== ENCOUNTER → 2022-01-28 | Outpatient (CLI) | payer OTHER, SELFPAY ==
[2022-01-28 12:22] LABS: ALB/GLOB Ratio 1.2 RATIO (0.9-2.4); AST(SGOT) 21 U/L (15-37); Alanine Aminotransfer ALT/SGPT 30 U/L (13-56); Albumin, Serum 3.9 g/dL (3.2-5.0); Alkaline Phosphatase 79 U/L (45-117); Anion Gap 7 (5-15); BUN 14 mg/dL (7-18); BUN/Creat Ratio 17.8 RATIO (10-20); Calcium,Total 9.5 mg/dL (8.5-10.1); Chloride 105 mmol/L (98-107); Creatinine, Serum 0.79 mg/dL (0.55-1.02); EST Glomerular Filtration Rate 79 mL/min (>60); Est Glom Filt Rate - Afr Amer 96 mL/min (>60); Globulin 3.2 g/dL (2.2-4.2); Glucose 120 mg/dL (74-106); Potassium 3.7 mmol/L (3.5-5.1); Protein, Total 7.1 g/dL (6.4-8.2); Sodium Level 141 mmol/L (136-145)
[2022-01-28 16:37] LABS: GGTP 54 U/L (5-55)
== END | disposition home or self-care (01) ==
LOC: BIMLAB 08:27
PROVIDERS: PCP Internal Medicine; Visit Provider Internal Medicine
DX: R74.8 Abnormal levels of other serum enzymes (principal)
CPT/HCPCS: 36415; 80053; 82977

== ENCOUNTER → 2022-05-06 | Outpatient (CLI) | payer OTHER, SELFPAY ==
[2022-05-06 10:34] LABS: ALB/GLOB Ratio 1.1 RATIO (0.9-2.4); AST(SGOT) 16 U/L (15-37); Alanine Aminotransfer ALT/SGPT 25 U/L (13-56); Albumin, Serum 3.4 g/dL (3.2-5.0); Alkaline Phosphatase 80 U/L (45-117); Anion Gap 6 (5-15); BUN 16 mg/dL (7-18); BUN/Creat Ratio 21.3 RATIO (10-20); Calcium,Total 9.3 mg/dL (8.5-10.1); Chloride 109 mmol/L (98-107); Creatinine, Serum 0.75 mg/dL (0.55-1.02); EST Glomerular Filtration Rate 83 mL/min (>60); Est Glom Filt Rate - Afr Amer 101 mL/min (>60); Glucose 129 mg/dL (74-106); Potassium 3.8 mmol/L (3.5-5.1); Protein, Total 6.4 g/dL (6.4-8.2); Sodium Level 140 mmol/L (136-145)
[2022-05-08 10:28] LABS: Hemoglobin A1c 6.1 % (3.8-5.6)
== END | disposition home or self-care (01) ==
LOC: BIMLAB 08:24
PROVIDERS: PCP Internal Medicine; Visit Provider Internal Medicine
DX: I10 Essential (primary) hypertension (principal); R73.9 Hyperglycemia, unspecified
CPT/HCPCS: 36415; 80053; 83036

== ENCOUNTER → 2022-05-20 | Outpatient (CLI) | payer OTHER, SELFPAY ==
--- NOTE | 2022-05-20 15:53 | BI_ITS ---
MAMMOGRAPHY - BILATERAL SCREENING REASON FOR EXAM: Female, 62 years old. Routine annual screening examination. PERTINENT HISTORY: Non-contributory. Prior right ultrasound guided breast biopsy. TECHNIQUE: Digital bilateral breast rashard (3D mammographic acquisition) in the CC and MLO projections. 2-D mediolateral oblique (MLO) and craniocaudad (CC) views of both breasts were obtained. CAD: Full Field Digital Mammography with Computer Added Detection was performed. COMPARISON: Comparison is made with prior study dated 03/27/2021 and 03/08/2020. FINDINGS: Breast Composition: The breasts are heterogeneously dense, which may obscure small masses. There are no dominant masses or suspicious calcifications. A tissue clip marker is seen in the upper anterior lateral aspect of the right breast in keeping with prior biopsy. No other significant abnormalities are identified. There has been no significant change since the prior study. BI/SCRN MAMM (CAD)W/RASHARD BILAT IMPRESSION: Stable bilateral screening mammogram. Yearly follow-up mammogram recommended. (A) ASSESSMENT CATEGORY: BIRADS Category 2: Benign. A letter regarding these results will be sent to the patient by the facility within 30 days. Approximately 10% of breast cancers are not detected by mammography. A normal mammogram should not delay biopsy of a clinically suspicious abnormality. [id number] Electronically Signed: Kirk Eugene MD at 8:41 EST ,
== END | disposition home or self-care (01) ==
LOC: OPBI 15:52
PROVIDERS: PCP Internal Medicine; Visit Provider Obstetrics & Gynecology
DX: Z12.31 Encounter for screening mammogram for malignant neoplasm of breast (principal)
CPT/HCPCS: 77063; 77067

== ENCOUNTER → 2022-08-08 | Outpatient (CLI) | payer OTHER, SELFPAY ==
[2022-08-08 12:20] LABS: Absolute Lymphocyte Count 1.61 X10^3/uL (0.83-4.51); Absolute Neutrophil Count 3.6 X10^3/uL (2.0-7.7); Basophil# 0.03 X10^3/uL; Basophil% 0.5 % (0-1); Eosinophil# 0.08 X10^3/uL; Eosinophils% 1.4 % (0-5); Hematocrit 42.2 % (37-47); Hemoglobin 13.9 g/dL (12.0-15.0); Lymphocyte # 1.61 X10^3/ul (0.83-4.51); Lymphocyte % 27.8 % (19-41); Mean Corp Hgb Conc 32.9 g/dL (32-36); Mean Corpuscular Hgb 29.6 pg (27.0-32.0); Mean Corpuscular Volume 89.8 fL (81-99); Mean Platelet Vol. 10.8 fl (6.2-12.0); Monocyte# 0.45 X10^3/uL; Monocyte% 7.8 % (0-10); NRBC Flagged by Analyzer 0 % (0-5); Neutrophil % 62.2 % (47-70); Platelet Count 208 K/mm3 (150-450); RBC Distribution Width CV 12.1 % (11.6-14.6); RBC Distribution Width SD 39.7 fl (35.1-43.9); White Blood Count 5.8 K/mm3 (4.4-11.0)
[2022-08-08 12:31] LABS: Cholesterol 167 mg/dL (200); High Density Lipoprotein 67 mg/dL; Triglycerides 84 mg/dL; Very Low Density Lipoprotein 17 mg/dL (5-40)
== END | disposition home or self-care (01) ==
LOC: BIMLAB 08:23
PROVIDERS: PCP Internal Medicine; Referring Provider Internal Medicine; Visit Provider Internal Medicine
DX: E78.5 Hyperlipidemia, unspecified (principal)
CPT/HCPCS: 36415; 80061; 85025

== ENCOUNTER → 2022-11-10 | Outpatient (CLI) | payer OTHER, SELFPAY ==
[2022-11-10 12:54] LABS: Vitamin B12 330 pg/mL (211-911)
[2022-11-10 13:05] LABS: T4 Free Direct 1.11 ng/dL (0.76-1.46)
[2022-11-10 14:14] LABS: Hemoglobin A1c 5.8 % (3.8-5.6)
== END | disposition home or self-care (01) ==
LOC: BIMLAB 08:39
PROVIDERS: PCP Internal Medicine; Referring Provider Internal Medicine; Visit Provider Internal Medicine
DX: R73.03 Prediabetes (principal); L60.3 Nail dystrophy; Z13.29 Encounter for screening for other suspected endocrine disorder
CPT/HCPCS: 36415; 82607; 83036; 84439; 84443

== ENCOUNTER → 2023-01-16 | Outpatient (CLI) | payer OTHER, SELFPAY ==
[2023-01-16 12:28] LABS: Absolute Lymphocyte Count 1.71 X10^3/uL (0.83-4.51); Absolute Neutrophil Count 3.4 X10^3/uL (2.0-7.7); Basophil# 0.04 X10^3/uL; Basophil% 0.7 % (0-1); Eosinophils% 1.8 % (0-5); Hematocrit 42.9 % (37-47); Hemoglobin 14.5 g/dL (12.0-15.0); Lymphocyte # 1.71 X10^3/ul (0.83-4.51); Lymphocyte % 30.3 % (19-41); Mean Corp Hgb Conc 33.8 g/dL (32-36); Mean Corpuscular Hgb 30.7 pg (27.0-32.0); Mean Corpuscular Volume 90.7 fL (81-99); Mean Platelet Vol. 11.2 fl (6.2-12.0); Monocyte# 0.38 X10^3/uL; Monocyte% 6.7 % (0-10); NRBC Flagged by Analyzer 0 % (0-5); Neutrophil # 3.42 X10^3/uL (2.7-7.7); Neutrophil % 60.5 % (47-70); Platelet Count 194 K/mm3 (150-450); RBC Distribution Width CV 11.9 % (11.6-14.6); RBC Distribution Width SD 39.6 fl (35.1-43.9); Red Blood Count 4.73 M/mm3 (4.2-5.4); White Blood Count 5.7 K/mm3 (4.4-11.0)
[2023-01-16 12:55] LABS: ALB/GLOB Ratio 1.2 RATIO (0.9-2.4); AST(SGOT) 15 U/L (15-37); Alanine Aminotransfer ALT/SGPT 20 U/L (13-56); Albumin, Serum 3.8 g/dL (3.2-5.0); Alkaline Phosphatase 82 U/L (45-117); Anion Gap 4 (5-15); BUN 23 mg/dL (7-18); BUN/Creat Ratio 27.6 RATIO (10-20); Calcium,Total 9.1 mg/dL (8.5-10.1); Chloride 109 mmol/L (98-107); Creatinine, Serum 0.83 mg/dL (0.55-1.02); EST Glomerular Filtration Rate 74 mL/min (>60); Est Glom Filt Rate - Afr Amer 89 mL/min (>60); Globulin 3.1 g/dL (2.2-4.2); Glucose 117 mg/dL (74-106); Potassium 4.2 mmol/L (3.5-5.1); Protein, Total 6.9 g/dL (6.4-8.2); Sodium Level 141 mmol/L (136-145)
== END | disposition home or self-care (01) ==
LOC: BIMLAB 08:59
PROVIDERS: PCP Internal Medicine; Referring Provider Dermatology; Visit Provider Dermatology
DX: L66.1 Lichen planopilaris (principal)
CPT/HCPCS: 36415; 80053; 85025

== ENCOUNTER → 2023-07-22 | Outpatient (CLI) | payer OTHER, SELFPAY ==
[2023-07-22 13:19] LABS: ALB/GLOB Ratio 1.2 RATIO (0.9-2.4); AST(SGOT) 15 U/L (15-37); Alanine Aminotransfer ALT/SGPT 24 U/L (13-56); Albumin, Serum 3.7 g/dL (3.2-5.0); Alkaline Phosphatase 73 U/L (45-117); Anion Gap 6 (5-15); BUN 24 mg/dL (7-18); BUN/Creat Ratio 28.7 RATIO (10-20); Calcium,Total 9.3 mg/dL (8.5-10.1); Chloride 111 mmol/L (98-107); Cholesterol 173 mg/dL (200); Creatinine, Serum 0.84 mg/dL (0.55-1.02); EST Glomerular Filtration Rate 73 mL/min (>60); Est Glom Filt Rate - Afr Amer 89 mL/min (>60); Globulin 3.2 g/dL (2.2-4.2); Glucose 126 mg/dL (74-106); High Density Lipoprotein 60 mg/dL; Potassium 3.9 mmol/L (3.5-5.1); Protein, Total 6.9 g/dL (6.4-8.2); Sodium Level 142 mmol/L (136-145); Triglycerides 122 mg/dL; Very Low Density Lipoprotein 24 mg/dL (5-40)
== END | disposition home or self-care (01) ==
LOC: BIMLAB 08:26
PROVIDERS: PCP Internal Medicine; Referring Provider Internal Medicine; Visit Provider Internal Medicine
DX: I10 Essential (primary) hypertension (principal)
CPT/HCPCS: 36415; 80053; 80061

== ENCOUNTER → 2023-10-24 | Outpatient (CLI) | payer OTHER, SELFPAY ==
[2023-10-24 08:30] LABS: Absolute Lymphocyte Count 2.15 X10^3/uL (0.83-4.51); Absolute Neutrophil Count 3.5 X10^3/uL (2.0-7.7); Basophil# 0.05 X10^3/uL; Basophil% 0.8 % (0-1); Eosinophils% 1.6 % (0-5); Hematocrit 41.9 % (37-47); Hemoglobin 14.2 g/dL (12.0-15.0); Lymphocyte # 2.15 X10^3/ul (0.83-4.51); Lymphocyte % 34.2 % (19-41); Mean Corp Hgb Conc 33.9 g/dL (32-36); Mean Corpuscular Volume 88.6 fL (81-99); Mean Platelet Vol. 10.6 fl (6.2-12.0); Monocyte# 0.45 X10^3/uL; Monocyte% 7.2 % (0-10); NRBC Flagged by Analyzer 0 % (0-5); Neutrophil # 3.53 X10^3/uL (2.7-7.7); Platelet Count 199 K/mm3 (150-450); RBC Distribution Width CV 11.6 % (11.6-14.6); RBC Distribution Width SD 37.4 fl (35.1-43.9); Red Blood Count 4.73 M/mm3 (4.2-5.4); White Blood Count 6.3 K/mm3 (4.4-11.0)
[2023-10-24 08:42] LABS: ALB/GLOB Ratio 1.3 RATIO (0.9-2.4); AST(SGOT) 17 U/L (15-37); Alanine Aminotransfer ALT/SGPT 23 U/L (13-56); Albumin, Serum 3.7 g/dL (3.2-5.0); Alkaline Phosphatase 77 U/L (45-117); Anion Gap 2 (5-15); BUN 16 mg/dL (7-18); BUN/Creat Ratio 20.1 RATIO (10-20); Calcium,Total 8.9 mg/dL (8.5-10.1); Chloride 110 mmol/L (98-107); EST Glomerular Filtration Rate 77 mL/min (>60); Est Glom Filt Rate - Afr Amer 94 mL/min (>60); Globulin 2.9 g/dL (2.2-4.2); Glucose 124 mg/dL (74-106); Potassium 4.2 mmol/L (3.5-5.1); Protein, Total 6.6 g/dL (6.4-8.2); Sodium Level 141 mmol/L (136-145)
== END | disposition home or self-care (01) ==
LOC: MTLAB 07:44 → LAB 07:45
PROVIDERS: PCP Internal Medicine; Referring Provider Dermatology; Visit Provider Dermatology
DX: L66.1 Lichen planopilaris (principal); Z79.899 Other long term (current) drug therapy
CPT/HCPCS: 36415; 80053; 85025

== ENCOUNTER → 2023-10-30 | Outpatient (CLI) | payer OTHER, SELFPAY ==
--- NOTE | 2023-10-30 07:21 | BI_ITS ---
MAMMOGRAPHY - BILATERAL SCREENING REASON FOR EXAM: Female, 63 years old. Routine annual screening examination. PERTINENT HISTORY: Non-contributory. Prior right ultrasound-guided breast biopsy. TECHNIQUE: Digital bilateral breast rashard (3D mammographic acquisition) in the CC and MLO projections. 2-D mediolateral oblique (MLO) and craniocaudad (CC) views of both breasts were obtained. CAD: Full Field Digital Mammography with Computer Added Detection was performed. COMPARISON: Comparison is made with prior study May 20, 2022 and March 27, 2021. FINDINGS: Breast Composition: The breasts are heterogeneously dense, which may obscure small masses. There are no dominant masses or suspicious calcifications. A tissue clip marker is once again seen in the upper anterior lateral aspect of the right breast. No other significant abnormalities are identified. There has been no significant change since the prior study. BI/SCRN MAMM (CAD)W/RASHARD BILAT IMPRESSION: Stable bilateral screening mammogram. Yearly follow-up mammogram recommended. (A) ASSESSMENT CATEGORY: BIRADS Category 2: Benign. A letter regarding these results will be sent to the patient by the facility within 30 days. Approximately 10% of breast cancers are not detected by mammography. A normal mammogram should not delay biopsy of a clinically suspicious abnormality. [id number] Electronically Signed: Kirk Eugene MD at 8:32 EDT ,
== END | disposition home or self-care (01) ==
LOC: OPBI 07:19
PROVIDERS: PCP Internal Medicine; Referring Provider Internal Medicine; Visit Provider Internal Medicine
DX: Z12.31 Encounter for screening mammogram for malignant neoplasm of breast (principal)
CPT/HCPCS: 77063; 77067

== ENCOUNTER → 2025-02-24 | Outpatient (CLI) | payer OTHER, SELFPAY ==
[2025-02-24 09:38] LABS: Hematocrit 41.7 % (37-47); Hemoglobin 14.5 g/dL (12.0-15.0); Immature Granulocytes Count 0.020 X10^3/uL (0.0-0.0); Mean Corp Hgb Conc 34.8 g/dL (32-36); Mean Corpuscular Volume 86.7 fL (81-99); Mean Platelet Vol. 10.8 fl (6.2-12.0); NRBC Flagged by Analyzer 0 % (0-5); Platelet Count 206 K/mm3 (150-450); RBC Distribution Width CV 11.9 % (11.6-14.6); RBC Distribution Width SD 37.6 fl (35.1-43.9); Red Blood Count 4.81 M/mm3 (4.2-5.4); White Blood Count 6.3 K/mm3 (4.4-11.0)
[2025-02-24 10:12] LABS: AST(SGOT) 23 U/L (<=31); Alanine Aminotransfer ALT/SGPT 23 U/L (<=34); Albumin, Serum 4.3 g/dL (3.4-4.8); Alkaline Phosphatase 86 U/L (35-104); Anion Gap 13 (5-15); BUN 17 mg/dL (4-19); BUN/Creat Ratio 19.9 RATIO (10-20); Calcium,Total 9.7 mg/dL (7.6-11.0); Carbon Dioxide 24.1 mmol/L (21.0-32.0); Chloride 105 mmol/L (98-108); Cholesterol 197 mg/dL (<=200); Globulin 2.5 g/dL (2.2-4.2); Glucose 142 mg/dL (70-99); Low Density Lipoprotein Calc. 104 mg/dL; Potassium 4.3 mmol/L (3.3-5.1); Triglycerides 151 mg/dL; Very Low Density Lipoprotein 30 mg/dL (5-40); cholesterol:hdl ratio screen 3.14
[2025-02-24 10:19] LABS: Creatinine, Urine (random) 166.00 mg/dL (28.00-217.00); Microalbumin,Random Urine < 12.0 mg/L (<20 mg/L)
== END | disposition home or self-care (01) ==
LOC: LAB 09:00
PROVIDERS: PCP Internal Medicine; Referring Provider Internal Medicine; Visit Provider Internal Medicine
DX: E11.9 Type 2 diabetes mellitus without complications (principal); E78.2 Mixed hyperlipidemia
CPT/HCPCS: 36415; 80053; 80061; 82043; 82570; 85025

== ENCOUNTER → 2025-03-29 | Outpatient (CLI) | payer OTHER, SELFPAY ==
--- NOTE | 2025-03-29 06:59 | BD_ITS ---
PROCEDURE: DEXA BONE DENSITY STUDY 03/29/2025 REASON FOR EXAM: POST MENOPAUSAL F, age 65 y/o . Postmenopausal. TECHNIQUE: Procedure Code: BDDBD Modality: DX Procedure: DEXA BONE DENSITY STUDY COMPARISON: Prior study dated August 18, 2018. FINDINGS: BMD and T-SCORES Lumbar spine: 0.921 g/cm2, T-score -1.6 Levels: L1 through L4 Change from prior: Loss of 14.6%. Left femoral neck: 0.647 g/cm2, T-score -1.8 Femoral neck comparison data not recommended for monitoring change. Left total hip: 0.822 g/cm2, T-score -1.0 Change from prior: Loss of 9.2%. Right femoral neck: 0.636 g/cm2, T-score -1.9 Femoral neck comparison data not recommended for monitoring change. Right total hip: 0.810 g/cm2, T-score -1.1 Change from prior: Loss of 4.2%. The World Health Organization has defined the following categories based on bone density: Normal bone density: T-score equal to or greater than -1.0 Osteopenia: T-score between -1.0 and -2.5 Osteoporosis: T-score equal to or less than -2.5 FRAX (or Comparable) Fracture Risk Assessment: 10 Year Probability of Fracture: Major Osteoporotic Fracture: 9.7% Hip Fracture: 1.3% (Note: FRAX is not to be reported in setting of normal range bone density, osteoporosis on DEXA, known history of osteoporosis, prior osteoporotic hip or vertebral fracture, or for any patient undergoing pharmacological treatment for bone loss.) The National Osteoporosis Foundation (NOF) recommends pharmacological treatment for patients with a FRAX 10-year risk of 3% or higher for a hip fracture, or 20% or higher for a major osteoporotic fracture, to prevent osteoporosis and reduce fracture risk. The patient does meet the pharmacological treatment recommendations for prevention of osteoporosis. BD/Dexa Bone Density Study IMPRESSION: OSTEOPENIA. Recommend follow-up as clinically warranted. Reading Location: [place] [id number]
--- OUTSIDE RECORDS SUMMARY | 2025-03-29 07:03 | XMS RPT_ITS | CCD ---
Author Organization [facility] Care Team Providers Care Superintendent Operations Division Name Role Phone Georgina Mckenzie MD Unavailable [phone] Terri, Dr. Mejia Primary Care Provider [phone] 0) Terri, Dr. Mejia Attending Provider [phone] Olejose, Dr. Mejia Referring Provider [phone] Terri, Dr. Mejia Primary Care Provider 1(33 0) Terri, Dr. Mejia Attending Provider [phone])2 Olejose, Dr. Mejia Referring Provider [phone])[phone] Terri, Dr. Mejia Primary Care Provider 1(33 0) Olejose, Dr. Mejia Attending Provider [phone])2 Terri, Dr. Mejia Referring Provider [phone])2 Dr. Georgina Mckenzie Attending Provider 1(330 ) Terri, Dr. Mejia Primary Care Provider 1(33 0) Olejose, Dr. Mejia Attending Provider [phone])2 Terri, Dr. Mejia Referring Provider [phone])2 Dr. Georgina Mckenzie Attending Provider 1(330 ) Terri, Dr. Mejia Primary Care Provider 1(33 0) Terri, Dr. Mejia Attending Provider 1(330)2 Olejose, Dr. Mejia Referring Provider [phone])2 Terri, Dr. Mejia Primary Care Provider 1(33 0) Terri, Dr. Mejia Referring Provider 1(330)2 Dr. Georgina Mckenzie Attending Provider 1(330 ) Terri, Dr. Mejia Attending Provider [phone])2 Terri, Dr. Mejia Primary Care Provider 1(33 0) Terri, Dr. Mejia Attending Provider [phone])2 Terri, Dr. Mejia Referring Provider [phone])2 Terri MARIE, Dr. Mejia Primary Care Provider Terri MARIE, Dr. Mejia Attending Provider 1(33 0) Terri MARIE, Dr. Mejia Referring Provider 1(33 0) Oleghe, Efewongbe Primary Care Unavailable Oleghe, Efewongbe Attending Unavailable Oleghe, Efewongbe Referring Unavailable Oleghe, Efewongbe Attending Unavailable Oleghe, Efewongbe Referring Unavailable Oleghe, Efewongbe Primary Care Unavailable Oleghe, Efewongbe Primary Care Unavailable Oleghe, Efewongbe Attending Unavailable Oleghe, Efewongbe Referring Unavailable Oleghe, Efewongbe Attending Unavailable Oleghe, Efewongbe Referring Unavailable Oleghe, Efewongbe Primary Care Unavailable Oleghe, Efewongbe Primary Care Unavailable Oleghe, Efewongbe Attending Unavailable Oleghe, Efewongbe Referring Unavailable Oleghe, Efewongbe Attending Unavailable Oleghe, Efewongbe Referring Unavailable Oleghe, Efewongbe Primary Care Unavailable Allergies Allergy Classification Reported Allergen(s) Allergy Type Date of Onset Reaction(s) Facility (2 sources) penicillin v drug allergy 7 [facility] (12 sources) Penicillins; Translations: [Penicillins] Allergy to substance 2 [facility] (12 sources) Tetracyclines; Translations: [Tetracyclines] Allergy to substance 2 Nausea [facility] Medications Current Medications Medication Drug Class(es) Dates Sig (Normalized) Sig (Original) apremilast 30 mg oral tablet (20 sources) Start: 04-01-2021 take 1 tablet by mouth once Apremilast (Otezla) 30 mg tablet Active 30 mg PO ONCE April 01, 2021 12:00am Start: 09-12-2019 End: 12-12-2019 take 1 tablet by mouth once daily Apremilast (Otezla) 30 mg tablet Discontinued 30 mg PO .q day September 12, 2019 1:00am December 12, 2019 8:08am aspirin 81 mg delayed release oral tablet (11 sources) Platelet Aggregation Inhibitor, Nonsteroidal Anti-inflammatory Drug Start: 04-01-2021 take 1 tablet by mouth once daily Aspirin 81 mg tablet,delayed release (DR/EC) Active 81 mg PO DAILY April 01, 2021 12:00am biotin 1 mg oral capsule (5 sources) Start: 11-26-2022 take 1 capsule by mouth once daily Biotin 1 mg capsule Active 1 mg PO DAILY November 26, 2022 12:00am clobetasol propionate 0.5 mg/ml topical cream (20 sources) Corticosteroid Start: 11-11-2024 Clobetasol 0.05 % cream Active 1 NMA TOPICAL DAILY as needed November 11, 2024 8:53am Start: 04-01-2021 End: 11-11-2024 Clobetasol 0.05 % cream Disc ontinued 1 NMA TOPICAL DAILY April 01, 2021 12:00am November 11, 2024 8:54am Start: 04-01-2021 Clobetasol Act sona 1 APPLIC TOPICAL DAILY April 01, 2021 12:00am Start: 02-03-2018 End: 02-27-2020 Clobetasol 0.05 % solution D iscontinued 1 NMA TOPICAL TWICE A DAY as needed May 10, 2018 8:11am February 27, 2020 4:34pm Lactobacillus Combination No.9 (Adult 50 Plus Probiotic) 4 billion cell capsule (11 sources) Start: 02-27-2020 take 4 capsules by mouth once daily Lactobacillus Combination No.9 (Adult 50 Plus Probiotic) 4 billion cell capsule Active 4000 NMA PO DAILY February 27, 2020 12:00am administer with a meal Start: 02-27-2020 take 4 capsules by m outh once daily Lactobacillus Combination No.9 (Adult 50 Plus Probiotic) 4 billion cell capsule Active 4000 MMU CELLS PO DAILY February 26, 2020 11:00pm administer with a meal Start: 02-27-2020 take 4 capsules by m outh once daily Lactobacillus Combination No.9 (Adult 50 Plus Probiotic) 4 billion cell capsule Active 4000 MMU CELLS PO DAILY February 27, 2020 12:00am administer with a meal mecobalamin (7 sources) Start: 11-11-2024 Mecobalamin (V itamin B12) 2,500 mcg tablet,chewable Active ug PO DAILY November 11, 2024 8:53am Start: 11-26-2022 End: 11-11-2024 Mecobalamin (Vitamin B12) 2, 500 mcg tablet,chewable Discontinued ug PO November 26, 2022 12:00am November 11, 2024 8:54am Start: 11-26-2022 Mecobalamin (V itamin B12) Active MCG PO November 26, 2022 12:00am Start: 11-26-2022 Mecobalamin (V itamin B12) Active MCG PO November 25, 2022 11:00pm 24 hr metFORMIN hydrochloride 500 mg extended release oral tablet (3 sources) Biguanide Start: 11-11-2024 End: 03-06-2025 take 1 tablet by mouth once daily Metformin 500 mg tablet extended release 24 hr Active 500 mg PO daily 90 1 March 06, 2025 8:38pm Multivitamin preparation (9 sources) Start: 02-16-2018 take 1 tablet by mouth once daily Multivitamin Active 1 TABLET PO daily February 15, 2018 11:00pm Start: 02-16-2018 take 1 tablet by deborah once daily Multivitamin Active 1 TABLET PO daily February 16, 2018 12:00am Multivitamin tablet (2 sources) Start: 02-16-2018 Multivitamin t ablet Active 1 {tbl} PO daily February 16, 2018 12:00am Completed/Discontinued Medications Medication Drug Class(es) Dates Sig (Normalized) Sig (Original) Albuterol Sulfate (Proair Hfa) 90 mcg/actuation HFA aerosol inhaler (11 sources) Start: 11-03-2018 End: 03-15-2019 Albuterol Sulfate (Proair Hfa) 90 mcg/actuation HFA aerosol inhaler Discontinued 1 - 2 NMA INHALATION EVERY 6 HOURS as needed for shortness of breath or wheezing 8.5 1 November 03, 2018 12:00am March 15, 2019 1:53pm Start: 11-03-2018 End: 03-15-2019 take 1 puff(s) by inhalation every six hours Albuterol Sulfate (Proair Hfa) 90 mcg/actuation HFA aerosol inhaler Discontinued 1 - 2 PUFF INHALATION EVERY 6 HOURS 8.5 November 02, 2018 11:00pm March 15, 2019 12:53pm Start: 11-03-2018 End: 03-15-2019 take 1 puff(s) by inhalation every six hours Albuterol Sulfate (Proair Hfa) 90 mcg/actuation HFA aerosol inhaler Discontinued 1 - 2 PUFF INHALATION EVERY 6 HOURS 8.November 03, 2018 12:00am March 15, 2019 1:53pm azithromycin 250 mg oral tablet (11 sources) Macrolide Antimicrobial Start: 11-05-2018 End: 12-08-2018 Azithromycin 250 mg tablet Discontinued 0 PO .COMPLEX 6 0 November 05, 2018 12:00am December 08, 2018 4:36pm Take two tablets by mouth on day one then one tablet by mouth on days 2-5 benzonatate 100 mg oral capsule (11 sources) Non-narcotic Antitussive Start: 11-03-2018 End: 12-08-2018 take 1 capsule by mouth three times daily as needed for cough Benzonatate (Tessalon Perles) 100 mg capsule Discontinued 100 mg PO THREE TIMES A DAY as needed for cough 30 0 November 03, 2018 12:00am December 08, 2018 4:36pm cyclobenzaprine hydrochloride 10 mg oral tablet (11 sources) Muscle Relaxant Start: 07-17-2020 End: 11-12-2020 take 1 tablet by mouth at bedtime as needed for muscle spasms Cyclobenzaprine 10 mg tablet Discontinued 10 mg PO BEDTIME as needed for muscle spasm 30 July 17, 2020 1:00am November 12, 2020 10:17am doxycycline hyclate 20 mg oral tablet (20 sources) Tetracycline-class Drug Start: 10-16-2020 End: 12-27-2021 take 5 tablets by mouth once daily Doxycycline Hyclate 20 mg tablet Discontinued 100 mg PO DAILY October 16, 2020 8:06am December 27, 2021 2:22pm Start: 10-16-2020 End: 12-27-2021 take 100 mg by mouth once daily Doxycycline Hyclate Di scontinued 100 MG PO DAILY October 16, 2020 8:06am December 27, 2021 2:22pm Start: 02-27-2020 End: 10-16-2020 take 1 tablet by mouth twice daily Doxycycline Hyclate 20 mg tablet Discontinued 20 mg PO TWICE A DAY February 27, 2020 12:00am October 16, 2020 8:06am fluticasone propionate 0.05 mg/actuat metered dose nasal spray (11 sources) Corticosteroid Start: 09-23-2018 End: 12-08-2018 take 50 ug nasal route once daily Fluticasone Propionate (Flonase Allergy Relief) 50 mcg/actuation spray,suspension Discontinued 2 NMA INTRANASAL DAILY 15.8 1 September 23, 2018 12:00am December 08, 2018 4:36pm administer into each nostril Start: 09-23-2018 End: 12-08-2018 take 1 spray(s) nasal route once daily Fluticasone Propionate (Flonase Allergy Relief) 50 mcg/actuation spray,suspension Discontinued 2 SPRAY INTRANASAL DAILY 15.8 September 23, 2018 12:00am December 08, 2018 4:36pm administer into each nostril hydroxychloroquine sulfate 200 mg oral tablet (11 sources) Antimalarial, Antirheumatic Agent Start: 02-27-2020 End: 04-18-2022 take 1 tablet by mouth twice daily Hydroxychloroquine (Plaquenil) 200 mg tablet Discontinued 200 mg PO TWICE A DAY February 27, 2020 12:00am April 18, 2022 1:49pm lisinopril 20 mg oral tablet (20 sources) Angiotensin Converting Enzyme Inhibitor Start: 06-13-2019 End: 10-20-2024 take 1 tablet by mouth once daily Lisinopril 20 mg tablet Discontinued 20 mg PO DAILY 90 3 November 02, 2023 8:22am October 20, 2024 7:42pm Start: 02-03-2018 End: 06-13-2019 Lisinopril 10 mg tablet Disc ontinued 0 .ROUTE .COMPLEX 90 0 June 03, 2019 2:16pm June 13, 2019 9:29am TAKE 1 TABLET EVERY DAY methylPREDNISolone 4 mg oral tablet (11 sources) Corticosteroid Start: 11-03-2018 End: 12-08-2018 take 1 tablet by mouth once Methylprednisolone (Medrol (Henrique)) 4 mg tablets,dose pack Discontinued 0 PO per package directions 21 November 03, 2018 12:00am December 08, 2018 4:37pm PO PER PKG DIR pantoprazole 40 mg delayed release oral tablet (20 sources) Proton Pump Inhibitor Start: 12-27-2021 End: 10-20-2024 take 1 tablet by mouth once daily Pantoprazole 40 mg tablet,delayed release (DR/EC) Discontinued 0 .ROUTE .COMPLEX 90 November 02, 2023 8:22am October 20, 2024 7:42pm TAKE 1 TABLET BY MOUTH EVERY DAY rosuvastatin calcium 5 mg oral tablet (20 sources) HMG-CoA Reductase Inhibitor Start: 02-08-2018 End: 12-19-2024 take 1 tablet by mouth once daily Rosuvastatin (Crestor) 5 mg tablet Discontinued 5 mg PO DAILY 90 November 02, 2023 8:22am December 19, 2024 7:57am 72 hr scopolamine 0.0139 mg/hr transdermal system (2 sources) Anticholinergic Start: 12-28-2023 End: 04-04-2024 Scopolamine Base 1 mg over 3 days patch 3 day Discontinued 1 NMA TD Every 3 Days as needed for motion sickness 4 December 28, 2023 12:00am April 04, 2024 3:20pm sertraline 50 mg oral tablet (20 sources) Serotonin Reuptake Inhibitor Start: 11-10-2022 End: 12-19-2024 take 1 tablet by mouth once daily Sertraline 50 mg tablet Discontinued 50 mg PO DAILY 90 November 02, 2023 8:22am December 19, 2024 7:57am Start: 12-27-2021 End: 11-10-2022 Sertraline 50 mg tablet Disc ontinued 50 mg PO DAILY 30 July 28, 2022 9:57am November 10, 2022 8:37am Take 1/2 tablet daily x 1 week then increase to 1 tablet VITAMIN B COMPLEX 250MG (2 sources) Start: 02-06-2017 take 1 tablet by mouth once daily VITAMIN B COMPLEX 250MG One tablet by mouth daily VITAMIN B COMPLEX 250MG Georgina Mckenzie MD Problems Active Problems Problem Classification Problem Date Documented Date Episodic/Chronic Anxiety disorders (20 sources) Generalized anxiety disorder; Translations: [Generalized anxiety disorder] Chronic Diabetes mellitus without complication (6 sources) Type 2 diabetes mellitus; Translations: [Type 2 diabetes mellitus without complications] Onset: 03-10-2025 11-11-2024 Chronic Disorders of lipid metabolism (20 sources) Hyperlipidemia; Translations: [Hyperlipidemia, unspecified] Onset: 04-04-2024 Chronic Diverticulosis and diverticulitis (11 sources) Diverticular disease; Translations: [Diverticulosis of intestine, part unspecified, without perforation or abscess without bleeding] 06-05-2021 Chronic Esophageal disorders (17 sources) Gastroesophageal reflux disease; Translations: [Gastro-esophageal reflux disease without esophagitis] Chronic Essential hypertension (20 sources) Hypertensive disorder; Translations: [Essential (primary) hypertension] Onset: 04-04-2024 Chronic Hemorrhoids (11 sources) Hemorrhoids; Translations: [Unspecified hemorrhoids] 03-15-2019 Episodic Other connective tissue disease (6 sources) Snapping thumb syndrome; Translations: [Trigger thumb, unspecified thumb] 11-10-2022 Episodic Other connective tissue disease (1 source) Trigger thumb, unspecified thumb; Translations: [Trigger finger (acquired)] 11-10-2022 Episodic Other connective tissue disease (5 sources) Pain in thumb ; Translations: [Pain in right finger(s)] 01-05-2023 Episodic Other connective tissue disease (5 sources) Trigger thumb of right hand; Translations: [Trigger thumb, right thumb] 01-05-2023 Episodic Other connective tissue disease (5 sources) Foot pain; Translations: [Pain in left foot] 07-22-2023 Episodic Other connective tissue disease (3 sources) Pain in left foot; Translations: [Pain in limb] 07-22-2023 Episodic Other ear and sense organ disorders (4 sources) Excessive cerumen in ear canal ; Translations: [Impacted cerumen, left ear] 10-28-2023 Episodic Other ear and sense organ disorders (2 sources) Impacted cerumen, left ear; Translations: [Impacted cerumen] 10-28-2023 Episodic Other inflammatory condition of skin (11 sources) Lichen planopilaris; Translations: [Lichen planopilaris] 12-12-2019 Episodic Other inflammatory condition of skin (2 sources) Lichen planopilaris; Translations: [Lichen planus] Episodic Other liver diseases (11 sources) Elevated liver enzymes level; Translations: [Abnormal levels of other serum enzymes] 12-30-2021 Episodic Other liver diseases (3 sources) Abnormal levels of other serum enzymes; Translations: [Other nonspecific abnormal serum enzyme levels] Episodic Other non-traumatic joint disorders (11 sources) Pain in right knee; Translations: [Right knee pain] 03-15-2019 Episodic Other skin disorders (6 sources) Trachyonychia; Translations: [Nail dystrophy] 11-10-2022 Episodic Other skin disorders (1 source) Nail dystrophy; Translations: [Other specified diseases of nail] 11-10-2022 Episodic Residual codes; unclassified (1 source) Asymptomatic menopausal state; Translations: [Asymptomatic menopausal state] Onset: 03-24-2025 Episodic Unclassified (19 sources) Encounter for screening for lipoid disorders; Translations: [Patient encounter status] Onset: 02-06-2017 02-06-2017 Episodic Unclassified (1 source) Diabetes mellitus screening ; Translations: [Encounter for screening for diabetes mellitus] Onset: 02-06-2017 02-06-2017 Unclassified (1 source) Screening mammography ; Translations: [Encounter for screening mammogram for malignant neoplasm of breast] Onset: 02-06-2017 02-06-2017 Unclassified (1 source) Gynecologic examination ; Translations: [Encounter for gynecological examination (general) (routine) without abnormal findings] Onset: 02-06-2017 02-06-2017 Unclassified (1 source) Procedure carried out on subject; Translations: [Encounter for screening for lipoid disorders] Onset: 02-06-2017 02-06-2017 Past or Other Problems Problem Classification Problem Date Documented Da te Episodic/Chronic Diabetes mellitus without complication (20 sources) Hyperglycemia; Translations: [Hyperglycemia, unspecified] Onset: 11-11-2024 05-07-2022 Episodic Results Test Name Value Interpretation Reference Range Facility Absolute lymphocyte countOrd ered By: Roberto Murray on 02-24-2025 Lymphocytes Auto (Unsp spec) [#/Vol] 1.90 10*3/uL 0.83-4.51 [facility] Absolute neutrophil countOrd ered By: Roberto Murray on 02-24-2025 Neutrophils (Bld) [#/Vol] 3.8 10*3/uL 2.0-7.7 [facility] Anion gap in Serum or Plasma Ordered By: Roberto Murray on 02-24-2025 Anion gap [Moles/Vol] 13 mmol/L 11-24 [facility] Automated lymphocyte count a s percentage of total leukocytesOrdered By: Roberto Murray on 02-24-2025 Lymphocytes/100 WBC Auto (Unsp spec) 30.4 % - [facility] BUN/creatinine ratioOrdered By: edwardshirlandrahul Murray on 02-24-2025 Urea nitrogen/Creatinine [Mass ratio] 19.9 mg/mg - [facility] Basophil percentageOrdered B y: Roberto Murray on 02-24-2025 Basophils/100 WBC (Bld) 0.5 % 0-1 [facility] Bilirubin, totalOrdered By: Roberto Murray on 02-24-2025 Bilirubin [Mass/Vol] 0.54 mg/dL 0.00-1.30 [facility] CBC W/Diff, Automatedon 02-10 Absolute Lymph 1.90 X10 3/uL Normal 0.83-4.51 [facility] Comment on above: Performed By: #### L 500.4100, L502.0250, L500.4050, L100.0100 #### [facility] [address] [place], [address] Absolute Neut 3.8 X10 3/uL Normal 2.0-7.7 [facility] Comment on above: Performed By: #### L 500.4100, L502.0250, L500.4050, L100.0100 #### [facility] [address] [place], [address] Basophils/100 WBC (Bld) 0.5 % Normal 0-1 [facility] Comment on above: Performed By: #### L 500.4100, L502.0250, L500.4050, L100.0100 #### [facility] [address] [place], [address] Eosinophils/100 WBC (Bld) 1.3 % Normal 0-5 [facility] Comment on above: Performed By: #### L 500.4100, L502.0250, L500.4050, L100.0100 #### [facility] [address] [place], [address] Erythrocyte distribution width (RBC) [Ratio] 11.9 % Normal 11.6-14.6 [facility] Comment on above: Performed By: #### L 500.4100, L502.0250, L500.4050, L100.0100 #### [facility] [address] [place], [address] Hematocrit (Bld) [Volume fraction] 41.7 % Normal 37-47 [facility] Comment on above: Performed By: #### L 500.4100, L502.0250, L500.4050, L100.0100 #### [facility] [address] [place], [address] Hemoglobin (Bld) [Mass/Vol] 14.5 g/dL Normal 12.0-15.0 [facility] Comment on above: Performed By: #### L 500.4100, L502.0250, L500.4050, L100.0100 #### [facility] [address] [place], [address] IG% 0.300 Normal 0.0-0.9 [facility] Comment on above: Result Comment: IG% - Immature Granulocytes (promyelocytes, myelocytes and metamyelocytes) > 1% indicates that a LEFT SHIFT is Present. Performed By: #### L 500.4100, L502.0250, L500.4050, L100.0100 #### [facility] [address] [place], [address] Lymphocytes/100 WBC (Bld) 30.4 % Normal 19-41 [facility] Comment on above: Performed By: #### L 500.4100, L502.0250, L500.4050, L100.0100 #### [facility] [address] [place], [address] MCH (RBC) [Entitic mass] 30.1 pg Normal 27.0-32.0 [facility] Comment on above: Performed By: #### L 500.4100, L502.0250, L500.4050, L100.0100 #### [facility] [address] [place], [address] MCHC (RBC) [Mass/Vol] 34.8 g/dL Normal 32-36 [facility] Comment on above: Performed By: #### L 500.4100, L502.0250, L500.4050, L100.0100 #### [facility] [address] [place], [address] MCV (RBC) [Entitic vol] 86.7 fL Normal 81-99 [facility] Comment on above: Performed By: #### L 500.4100, L502.0250, L500.4050, L100.0100 #### [facility] [address] [place], [address] Monocytes/100 WBC (Bld) 6.4 % Normal 0-10 [facility] Comment on above: Performed By: #### L 500.4100, L502.0250, L500.4050, L100.0100 #### [facility] [address] [place], [address] Neutrophils/100 WBC (Bld) 61.1 % Normal 47-70 [facility] Comment on above: Performed By: #### L 500.4100, L502.0250, L500.4050, L100.0100 #### [facility] [address] [place], [address] Nucleated RBC (Bld) [#/Vol] 0 10*3/uL Normal 0-5 [facility] Comment on above: Performed By: #### L 500.4100, L502.0250, L500.4050, L100.0100 #### [facility] [address] [place], [address] Platelet mean volume (Bld) [Entitic vol] 10.8 fL Normal 6.2-12.0 [facility] Comment on above: Performed By: #### L 500.4100, L502.0250, L500.4050, L100.0100 #### [facility] [address] [place], [address] Platelets (Bld) [#/Vol] 206 10*3/uL Normal 150-450 [facility] Comment on above: Performed By: #### L 500.4100, L502.0250, L500.4050, L100.0100 #### [facility] [address] [place], [address] RBC (Bld) [#/Vol] 4.81 10*6/uL Normal 4.2-5.4 [facility] Comment on above: Performed By: #### L 500.4100, L502.0250, L500.4050, L100.0100 #### [facility] [address] [place], [address] RDW SD 37.6 fl Normal 35.1-43.9 [facility] Comment on above: Performed By: #### L 500.4100, L502.0250, L500.4050, L100.0100 #### [facility] [address] [place], [address] WBC (Bld) [#/Vol] 6.3 10*3/uL Normal 4.4-11.0 [facility] Comment on above: Performed By: #### L 500.4100, L502.0250, L500.4050, L100.0100 #### [facility] [address] [place], [address] Calculated very low density lipoprotein (VLDL) cholesterol measurementOrdered By: Roberto Murray on 02-24-2025 Calculated very low density lipoprotein (VLDL) cholesterol measurement 30 mg/dL 5-40 [facility] Carbon dioxide, total [Moles /volume] in Central venous bloodOrdered By: Roberto Murray on 02-24-2025 CO2 [Moles/Vol] 24.1 mmol/L 21.0-32.0 [facility] Chloride assayOrdered By: Hyacinth Murray on 02-24-2025 Chloride [Moles/Vol] 105 mmol/L 98-108 [facility] Comprehensive Metabolic Prof ilon 02-24-2025 Albumin [Mass/Vol] 4.3 g/dL Normal 3.4-4.8 [facility] Comment on above: Performed By: #### L 500.4100, L502.0250, L500.4050, L100.0100 #### [facility] [address] [place], [address] Albumin/Globulin [Mass ratio] 1.7 {ratio} Normal 0.9-2.4 [facility] Comment on above: Performed By: #### L 500.4100, L502.0250, L500.4050, L100.0100 #### [facility] [address] [place], [address] ALK PHOS 86 U/L Normal 35-104 [facility] Comment on above: Performed By: #### L 500.4100, L502.0250, L500.4050, L100.0100 #### [facility] [address] [place], [address] ALT [Catalytic activity/Vol] 23 U/L Normal <=34 [facility] Comment on above: Performed By: #### L 500.4100, L502.0250, L500.4050, L100.0100 #### [facility] [address] [place], [address] AST [Catalytic activity/Vol] 23 U/L Normal <=31 [facility] Comment on above: Performed By: #### L 500.4100, L502.0250, L500.4050, L100.0100 #### [facility] [address] [place], [address] Bilirubin [Mass/Vol] 0.54 mg/dL Normal 0.00-1.30 [facility] Comment on above: Performed By: #### L 500.4100, L502.0250, L500.4050, L100.0100 #### [facility] [address] [place], [address] BUN/CRE 19.9 RATIO Normal 10-20 [facility] Comment on above: Performed By: #### L 500.4100, L502.0250, L500.4050, L100.0100 #### [facility] [address] [place], [address] Calcium [Mass/Vol] 9.7 mg/dL Normal 7.6-11.0 [facility] Comment on above: Performed By: #### L 500.4100, L502.0250, L500.4050, L100.0100 #### [facility] [address] [place], [address] Chloride [Moles/Vol] 105 mmol/L Normal 98-108 [facility] Comment on above: Performed By: #### L 500.4100, L502.0250, L500.4050, L100.0100 #### [facility] [address] [place], [address] CO2 [Moles/Vol] 24.1 mmol/L Normal 21.0-32.0 [facility] Comment on above: Performed By: #### L 500.4100, L502.0250, L500.4050, L100.0100 #### [facility] [address] [place], [address] Creatinine [Mass/Vol] 0.83 mg/dL Normal 0.70-1.20 [facility] Comment on above: Performed By: #### L 500.4100, L502.0250, L500.4050, L100.0100 #### [facility] [address] [place], [address] GAP 13 Normal 5-15 [facility] Comment on above: Performed By: #### L 500.4100, L502.0250, L500.4050, L100.0100 #### [facility] [address] [place], [address] GFR/1.73 sq M.predicted among non-blacks MDRD (S/P/Bld) [Vol rate/Area] 79 mL/min/{1.73_m2} Normal >60 [facility] Comment on above: Result Comment: mL/m in/1.73m2 CKD-EPI Creatinine Equation (2020) Performed By: #### L 500.4100, L502.0250, L500.4050, L100.0100 #### [facility] [address] [place], [address] Globulin (S) [Mass/Vol] 2.5 g/dL Normal 2.2-4.2 [facility] Comment on above: Performed By: #### L 500.4100, L502.0250, L500.4050, L100.0100 #### [facility] [address] [place], [address] Glucose [Mass/Vol] 142 mg/dL High 70-99 [facility] Comment on above: Performed By: #### L 500.4100, L502.0250, L500.4050, L100.0100 #### [facility] [address] [place], [address] Potassium [Moles/Vol] 4.3 mmol/L Normal 3.3-5.1 [facility] Comment on above: Performed By: #### L 500.4100, L502.0250, L500.4050, L100.0100 #### [facility] [address] [place], [address] Sodium [Moles/Vol] 141 mmol/L Normal 133-145 [facility] Comment on above: Performed By: #### L 500.4100, L502.0250, L500.4050, L100.0100 #### [facility] [address] [place], [address] T PROT 6.8 g/dL Normal 5.9-8.4 [facility] Comment on above: Performed By: #### L 500.4100, L502.0250, L500.4050, L100.0100 #### [facility] [address] [place], [address] Urea nitrogen [Mass/Vol] 17 mg/dL Normal 4-19 [facility] Comment on above: Performed By: #### L 500.4100, L502.0250, L500.4050, L100.0100 #### [facility] [address] [place], [address] Eosinophil percentageOrdered By: Roberto Murray on 02-24-2025 Eosinophils/100 WBC (Bld) 1.3 % 0-5 [facility] Erythrocyte distribution wid th ratioOrdered By: Roberto Murray on 02-24-2025 Erythrocyte distribution width (RBC) [Ratio] 11.9 % 11.6-14.6 [facility] Erythrocyte distribution wid th standard deviationOrdered By: Roberto Murray on 08-15-2025 Erythrocyte distribution width (RBC) [Ratio] 37.6 fl 35.1-43.9 [facility] Glomerular filtration rate ( GFR) estimation/1.73 sq m using serum, plasma, or whole bOrdered By: Roberto Murray on 02-24-2025 GFR/1.73 sq M.predicted among non-blacks MDRD (S/P/Bld) [Vol rate/Area] 79 mL/min/{1.73_m2} >60 [facility] Comment on above: mL/min/1.73m2 CKD-EP I Creatinine Equation (2020) Hematocrit Auto (Bld) [Volum e fraction]Ordered By: Chershirlandrahul Murray on 02-24-2025 Hematocrit (Bld) [Volume fraction] 41.7 % 37-47 [facility] Hemoglobin measurementOrdere d By: Roberto Murray on 02-24-2025 Hemoglobin (Bld) [Mass/Vol] 14.5 g/dL 12.0-15.0 [facility] Immature granulocytes/100 WB C Auto (Bld)Ordered By: Roberto Murray on 02-24-2025 Immature granulocytes/100 WBC (Bld) 0.300 % 0.0-0.9 [facility] Comment on above: IG% - Immature Granu locytes (promyelocytes, myelocytes and metamyelocytes) > 1% indicates that a LEFT SHIFT is Present. Internal Medicine Office Vis kathie 02-24-2025 Internal Medicine Office Visit [facility] On license of [facility] [place], [place] [address] OFFICE VISIT Date of Service: 02/24/25 MR#: [id number] Acct: [id number] Name: MELYSSA HERNANDEZ Rep #: [id number] : 1960 Provider: Dr. Roberto dimas MD Age/Sex: 65/F Location: [facility] [place] Status: Signed Intake Vital Signs 11/11/24 08:54 02/24/25 08:26 Height 5 ft 4 in 5 ft 4 in Weight: 186 lb 8 oz BMI 32.0 BP 122/66 H Blood Pressure Location Lt brachial Position Sitting Respiration 16 Pulse 71 Pulse Source Monitor Temp 97.5 F L Temp Source Temporal Pulse Oximetry (%) 95 Oxygen Delivery Method room air Intake Visit Reasons: 3 M FU Chief Complaint: FU Chief Wharfinger Required: No Accompanied by: Self Is patient in pain?: No Allergies Penicillins Allergy (Intermediate, Verified 02/24/25 08:18) Hives Tetracyclines Allergy (Intermediate, Verified 02/24/25 08:18) Nausea Medications ???Medication ???Instructions ???Recorded ???Confirmed ???Type multivitamin 1 tab PO QDAY 02/16/18 02/24/25 Hi story lactobacillus combination no.9 4 4,000 mmu cells PO DAILY 02/27/20 02/24/25 History billion cell capsule (Adult 50 Plus Probiotic) apremilast 30 mg tablet (Otezla) 30 mg PO ONCE 04/01/21 02/24/25 Hi story aspirin 81 mg tablet,delayed 81 mg PO DAILY 04/01/21 02/24/25 H istory release biotin 1 mg capsule 1 mg PO DAILY 11/26/22 02/24/25 Hi story lisinopril 20 mg tablet 20 mg PO DAILY #90 tabs 10/20/24 0 02/24/25 Rx pantoprazole 40 mg tablet,delayed See Rx Instructions .Route 02/24/25 Rx release .COMPLEX #90 tabs clobetasol 0.05 % topical cream 1 applic topical DAILY PRN 5 02/24/25 History mecobalamin (vitamin B12) 2,500 mcg PO DAILY 11/11/24 02/24/25 His tory mcg chewable tablet metformin 500 mg tablet,extended 500 mg PO QDAY #30 tabs 11/11/24 0 02/24/25 Rx release 24 hr rosuvastatin 5 mg tablet (Crestor) 5 mg PO DAILY #90 tabs 12/19/24 02/24/25 Rx sertraline 50 mg tablet 50 mg PO DAILY #90 tabs 12/19/24 0 02/24/25 Rx Nurse's Note: follow up [facility] Medical History Type 2 diabetes mellitus Excessive cerumen in left ear canal Left foot pain Trigger thumb Screening for thyroid disorder Brittle nails Borderline type 2 diabetes mellitus Elevated blood sugar Elevated liver enzymes GERD (gastroesophageal reflux disease) Generalized anxiety disorder Diverticulosis Lichen amyloidosus Wears hearing aid Wears contact lenses Hemorrhoids Right knee pain Health care maintenance Hyperlipidemia Lichen planopilaris Hypertension Surgical History History of right breast biopsy ( 03/2019) History of hysterectomy Family History Mother Blood clot in vein High cholesterol Hypertension Skin cancer Grandmother Colon cancer Father Myocardial infarction High cholesterol Hypertension Heart disease Social History Smoking Status: Never smoker alcohol intake: current alcohol intake frequency: a few times a month Alcohol type: wine substance use type: does not use caffeine: Yes what type of physical activity do you participate in: walking frequency: 3-4 times per week seatbelt use: always do you feel safe at home: Yes additional social history: -Terrance- Retired Patient is at [employer] Female Reproductive History Menstrual Ab spontaneous: 1 HPI HPI Chief Complaint: FU Details: MELYSSA HERNANDEZ, is a 65-year-old female presenting with a routine follow-up for chronic conditions and preventive care. She reports her mood has improved significantly and attributes this to her current management. Chronic history of generalized anxiety disorder currently on Zoloft. Her Type 2 Diabetes Mellitus is under control with metformin at 500 mg once daily, and her most recent hemoglobin A1c level is 6.8, a slight decrease from 6.9. Her blood pressure, managed with Lisinopril, is currently at a stable level of 122/66 mmHg. Additionally, the patient underwent a hysterectomy in the past, thus negating the need for Pap smears. She has not seen a almond blancher hand in the last nine months but plans to schedule an appointment soon. She acknowledges the need for a mammogram and a bone density scan, both of which are due. She has received her vaccinations for shingles and pneumonia. She reports no significant changes in her habits and mentions acquiring a new mattress, improving her sleep quality. The patient denies any difficulties with urination or gastrointestinal issues, such as dark or bloody stools. Currently, there are no acute medical conc (more content not included)... Normal [facility] LDL calc ser/plasOrdered By: Roberto Murray on 02-24-2025 Cholesterol in LDL [Mass/Vol] 104 mg/dL [facility] Comment on above: Mrganhflxr=497-993 m g/dL & Higher Kegv=925 mg/dL or greaterFriedwald Equation for LDL-C Laboratory - Chemistry and C hemistry - challengeOrdered By: Roberto Murray on 02-24-2025 AST [Catalytic activity/Vol] 23 U/L <32 [facility] - Hematology and Cell countsOrdered By: Roberto Murray on 02-24-2025 HbA1c (Bld) [Mass fraction] 6.8 % High 4.2-6.3 [facility] Lipid Profileon 02-24-2025 CHOL:HDL 3.14 Normal [facility] Comment on above: Performed By: #### L 500.4100, L502.0250, L500.4050, L100.0100 #### [facility] [address] [place], [address] Cholesterol [Mass/Vol] 197 mg/dL Normal <=200 [facility] Comment on above: Result Comment: Chol esterol level, Desirable <200 mg/dL Borderline high cholesterol 200-239 mg/dL High cholesterol >=240 mg/dL Recommendations of the NCEP Adult Treatment Panel for the following risk-cutoff thresholds for the [place] population. Performed By: #### L 500.4100, L502.0250, L500.4050, L100.0100 #### [facility] [address] [place], [address] Cholesterol in HDL [Mass/Vol] 63 mg/dL Normal [facility] Comment on above: Result Comment: [place] Cholesterol Education Program (NCEP) guidelines: <40 mg/dL: Low HDL-cholesterol (major risk factor for CHD) >= 60 mg/dL: High HDL-cholesterol (negative risk factor for CHD) HDL-cholesterol is affected by a number of factors, e.g. smoking, exercise, hormones, sex and age. Performed By: #### L 500.4100, L502.0250, L500.4050, L100.0100 #### [facility] [address] [place], [address] Cholesterol in LDL [Mass/Vol] 104 mg/dL Normal [facility] Comment on above: Result Comment: Bord ssvzyu=775-859 mg/dL Higher Hsza=350 mg/dL or greater [place] Equation for LDL-C Performed By: #### L 500.4100, L502.0250, L500.4050, L100.0100 #### [facility] [address] [place], [address] Cholesterol in VLDL [Mass/Vol] 30 mg/dL Normal 5-40 [facility] Comment on above: Performed By: #### L 500.4100, L502.0250, L500.4050, L100.0100 #### [facility] [address] [place], [address] Triglyceride [Mass/Vol] 151 mg/dL Normal [facility] Comment on above: Result Comment: The drugs N-Acetylcysteine and Metamizole may falsely depress this assay. Normal range: <150 mg/dL Borderline High: 150-199 mg/dL High: 200-499 mg/dL Very High: >500 mg/dL Performed By: #### L 500.4100, L502.0250, L500.4050, L100.0100 #### [facility] [address] [place], [address] MCV (mean corpuscular volume ) determinationOrdered By: Roberto Murray on 02-24-2025 MCV (RBC) [Entitic vol] 86.7 fL 81-99 [facility] Mean corpuscular hemoglobin (MCH) determinationOrdered By: Roberto Murray on 02-24-2025 MCH (RBC) [Entitic mass] 30.1 pg 27.0-32.0 [facility] Mean corpuscular hemoglobin concentration (MCHC) determinationOrdered By: Roberto Murray on 02-24-2025 MCHC (RBC) [Mass/Vol] 34.8 g/dL 32-36 [facility] Mean platelet volume determi nationOrdered By: Roberto Murray on 02-24-2025 Platelet mean volume (Bld) [Entitic vol] 10.8 fL 6.2-12.0 [facility] Microalb:Creat Ratio,Random URon 02-24-2025 Creatinine [Mass/Vol] 166.00 mg/dL Normal 28.00-217.00 [facility] Comment on above: Performed By: #### L 500.4100, L502.0250, L500.4050, L100.0100 #### [facility] [address] [place], [address] MALB:CREAT UNABLE TO CALCULATE Normal <30 mg/g CRE [facility] Comment on above: Performed By: #### L 500.4100, L502.0250, L500.4050, L100.0100 #### [facility] [address] [place], [address] MICROALBUMIN,UR < 12.0 Normal <20 mg/L [facility] Comment on above: Performed By: #### L 500.4100, L502.0250, L500.4050, L100.0100 #### [facility] [address] [place], [place], [address] Microalbumin/creat ratio urO rdered By: Roberto Murray on 02-24-2025 Urine microalbumin/creatinine ratio measurement UNABLE TO CALCULATE mg/g CRE <30 [facility] Monocyte percentageOrdered B y: Karlibe Joannee on 02-24-2025 Monocytes/100 WBC (Bld) 6.4 % 0-10 [facility] Neutrophil percentageOrdered By: Efewongbe Joannee on 02-24-2025 Neutrophils/100 WBC (Bld) 61.1 % 47-70 [facility] Nucleated red blood cell per centageOrdered By: Roberto Rubioe on 02-24-2025 Nucleated RBC/100 WBC (Bld) [Ratio] 0 % 0-5 [facility] Platelet countOrdered By: Hyacinth Murray on 02-24-2025 Platelets (Bld) [#/Vol] 206 10*3/uL 150-450 [facility] Potassium measurement (mass/ volume)Ordered By: Roberto Murray on 02-24-2025 Potassium (Unsp spec) [Mass/Vol] 4.3 mmol/L 3.3-5.1 [facility] RBC Auto (Bld) [#/Vol]Ordere d By: Roberto Murray on 02-24-2025 RBC (Bld) [#/Vol] 4.81 10*6/uL 4.2-5.4 [facility] Random urine creatinine lisa urement (mass/volume)Ordered By: Roberto Murray on 02-24-2025 Creatinine Unsp time (U) [Mass/Vol] 166.00 mg/dL 28.00-217.00 [facility] Screening total cholesterol/ high density lipoprotein (HDL) cholesterol ratioOrdered By: Roberto Murray on 02-24-2025 Cholesterol.total/Delaney sterol in HDL [Mass ratio] 3.14 {ratio} [facility] Serum creatinine measurement (mass/volume)Ordered By: Roberto Murray on 02-24-2025 Creatinine [Mass/Vol] 0.83 mg/dL 0.70-1.20 [facility] Serum globulin measurementOr dered By: Roberto Murray on 02-24-2025 Globulin (S) [Mass/Vol] 2.5 g/dL 2.2-4.2 [facility] Serum glucose measurement (m ass/volume)Ordered By: Roberto Murray on 02-24-2025 Glucose [Mass/Vol] 142 mg/dL High 70-99 [facility] Serum or plasma alanine tyson otransferase (ALT) measurementOrdered By: Roberto Murray on 02-24-2025 ALT [Catalytic activity/Vol] 23 U/L <35 [facility] Serum or plasma albumin lisa urement (mass/volume)Ordered By: Roberto Murray 02-24-2025 Albumin [Mass/Vol] 4.3 g/dL 3.4-4.8 [facility] Serum or plasma albumin/glob ulin mass ratioOrdered By: Hyacinthann-marie Changlizbethmariely 02-24-2025 Albumin/Globulin [Mass ratio] 1.7 {ratio} 0.9-2.4 [facility] Serum or plasma alkaline silvano sphatase measurementOrdered By: Hyacinthedwardwilliamrahul Changlizbethmariely 02-24-2025 ALP [Catalytic activity/Vol] 86 U/L 35-104 [facility] Serum or plasma calcium lisa urement (mass/volume)Ordered By: Hyacinthedwardricardo Bernardolizbethmariely on 02-24-2025 Calcium [Mass/Vol] 9.7 mg/dL 7.6-11.0 [facility] Serum or plasma cholesterol in HDL measurement (mass/volume)Ordered By: Hyacinthedwardwilliamrahul Changlizbethmariely 02-24-2025 Cholesterol in HDL [Mass/Vol] 63 mg/dL >40 [facility] Comment on above: National Cholesterol Education Program (NCEP) guidelines:<40 mg/dL: Low HDL-cholesterol (major risk factor for CHD)>= 60 mg/dL: High HDL-cholesterol (negative risk factor for CHD)HDL-cholesterol is affected by a number of factors, e.g. smoking, exercise, hormones, sex and age. Serum or plasma cholesterol measurement (mass/volume)Ordered By: Hyacinthann-marie Murray on 02-24-2025 Cholesterol [Mass/Vol] 197 mg/dL <201 [facility] Comment on above: Cholesterol level, D esirable <200 mg/dLBorderline high cholesterol 200-239 mg/dLHigh cholesterol >=240 mg/dLRecommendations of the NCEP Adult Treatment Panel for the following risk-cutoff thresholds for the [place] population. Serum or plasma urea nitroge n measurement (mass/volume)Ordered By: Roberto Changlizbethmariely 02-24-2025 Urea nitrogen [Mass/Vol] 17 mg/dL 4-19 [facility] Sodium levelOrdered By: Cher ricardo Bernardolizbethmariely on 02-24-2025 Sodium [Moles/Vol] 141 mmol/L 133-145 [facility] Total proteinOrdered By: Jl madhavirahul Changlizbethmariely 02-24-2025 Protein [Mass/Vol] 6.8 g/dL 5.9-8.4 [facility] Triglycerides measurementOrd ered By: Roberto Murray on 02-24-2025 Triglyceride [Mass/Vol] 151 mg/dL <199 [facility] Comment on above: The drugs N-Acetylcy steine and Metamizole may falsely depress this assay. Normal range: <150 mg/dLBorderline High: 150-199 mg/dLHigh: 200-499 mg/dLVery High: >500 mg/dL Urine albumin measurement [facility] detection limit of 20 mg/L or less (mass/volume)Ordered By: Roberto Murray on 02-24-2025 Albumin DL <= 20 mg/L (U) [Mass/Vol] < 12.0 mg/L <20 mg/L [facility] White blood cell (WBC) count Ordered By: Roberto Murray on 02-24-2025 WBC (Bld) [#/Vol] 6.3 10*3/uL 4.4-11.0 [facility] Internal Medicine Office Vis iton 11-11-2024 Internal Medicine Office Visit [facility] On license of [facility] [place] [address] [place] [address] OFFICE VISIT Date of Service: 11/11/24 MR#: [id number] Acct: [id number] Name: MELYSSA HERNANDEZ Rep #: [id number] : 1960 Provider: Dr. Roberto dimas MD Age/Sex: 64/F Location: [facility] [place] Status: Signed Intake Vital Signs 07/08/24 07:55 11/11/24 08:54 Height 5 ft 4 in 5 ft 4 in Weight: 188 lb BMI 32.2 BP 112/78 Blood Pressure Location Lt brachial Position Sitting Respiration 16 Pulse 70 Pulse Source Monitor Temp 98.1 F Temp Source Temporal Pulse Oximetry (%) 97 Oxygen Delivery Method room air Intake Visit Reasons: 4 M FU Chief Complaint: 4 M FU Is patient in pain?: No Allergies Penicillins Allergy (Intermediate, Verified 11/11/24 08:53) Hives Tetracyclines Allergy (Intermediate, Verified 11/11/24 08:53) Nausea Medications ???Medication ???Instructions ???Recorded ???Confirmed ???Type multivitamin 1 tab PO QDAY 02/16/18 11/11/24 Hi story lactobacillus combination no.9 4 4,000 mmu cells PO DAILY 02/27/20 11/11/24 History billion cell capsule (Adult 50 Plus Probiotic) apremilast 30 mg tablet (Otezla) 30 mg PO ONCE 04/01/21 11/11/24 Hi story aspirin 81 mg tablet,delayed 81 mg PO DAILY 04/01/21 11/11/24 H istory release biotin 1 mg capsule 1 mg PO DAILY 11/26/22 11/11/24 Hi story rosuvastatin 5 mg tablet (Crestor) 5 mg PO DAILY #90 tabs 11/02/23 11/11/24 Rx sertraline 50 mg tablet 50 mg PO DAILY #90 tabs 11/02/23 0 11/11/24 Rx lisinopril 20 mg tablet 20 mg PO DAILY #90 tabs 10/20/24 0 11/11/24 Rx pantoprazole 40 mg tablet,delayed See Rx Instructions .Route 11/11/24 Rx release .COMPLEX #90 tabs clobetasol 0.05 % topical cream 1 applic topical DAILY PRN 2 5 11/11/24 History mecobalamin (vitamin B12) 2,500 mcg PO DAILY 11/11/24 11/11/24 His tory mcg chewable tablet metformin 500 mg tablet,extended 500 mg PO QDAY #30 tabs 11/11/24 0 11/11/24 Rx release 24 hr Have you fallen in the past year?: No PFSH Medical History (Updated 11/11/24 @ 09:[address] Roberto Murray MD) Type 2 diabetes mellitus Excessive cerumen in left ear canal Left foot pain Trigger thumb Screening for thyroid disorder Brittle nails Borderline type 2 diabetes mellitus Elevated blood sugar Elevated liver enzymes GERD (gastroesophageal reflux disease) Generalized anxiety disorder Diverticulosis Lichen amyloidosus Wears hearing aid Wears contact lenses Hemorrhoids Right knee pain Health care maintenance Hyperlipidemia Lichen planopilaris Hypertension Surgical History History of right breast biopsy ( 03/2019) History of hysterectomy Family History Mother Blood clot in vein High cholesterol Hypertension Skin cancer Grandmother Colon cancer Father Myocardial infarction High cholesterol Hypertension Heart disease Social History Smoking Status: Never smoker alcohol intake: current alcohol intake frequency: a few times a month Alcohol type: wine substance use type: does not use caffeine: Yes what type of physical activity do you participate in: walking frequency: 3-4 times per week seatbelt use: always do you feel safe at home: Yes additional social history: -Terrance- Retired Patient is at [employer] Female Reproductive History Menstrual Ab spontaneous: 1 HPI HPI Chief Complaint: 4 M FU Details: MELYSSA HERNANDEZ, is a 64 F who presents to the office today for follow-up of her chronic medical conditions. No acute concerns at this time. A1c today is at 6.9 up from 6.1. She states that she has not been as active or paid attention to her diet. Plans to make changes. No blurry vision, numbness or tingling. She feels well. History of hypertension, blood pressure today is at 112/78 mmHg. No chest pain, palpitation or shortness of breath. Also history of anxiety on Zoloft, she feels really good. No recent stressors or changes. No concerning side effects on Zoloft. Other chronic medical conditions are stable. ROS Const Constitutional: No body ache, chills, excessive sweating, fatigue, fever(s), frequent falls, headache(s), snoring, weakness, sleep problems or change in appetite Eyes Eyes: No blurry vision, change in vision, bulging eyes, floaters, visual disturbances or Light sensitivity ENT ENT: No abnormal hearing, ear or mastoid pain, tinnitus, balance problems, nosebleed/epistaxis, nasal congestion, nasal discharge, headache(s), neck pain or sore throat Resp Respiratory: No cough, excessive phlegm production, pain on inspiration, shortness of breath, snoring or wheezi (more content not included)... Normal [facility] - Hematology and Cell countsOrdered By: Roberto Murray on 11-11-2024 HbA1c (Bld) [Mass fraction] 6.9 % High 4.2-6.3 [facility] Internal Medicine Office Vis kathie 07-08-2024 Internal Medicine Office Visit [facility] [address] [place] [address] [place] [address] OFFICE VISIT Date of Service: 07/08/24 MR#: [id number] Acct: [id number] Name: MELYSSA HERNANDEZ Rep #: [id number] : 1960 Provider: Dr. Roberto dimas MD Age/Sex: 64/F Location: [facility] [place] Status: Signed Intake Vital Signs 04/04/24 15:20 07/08/24 07:55 Height 5 ft 4 in 5 ft 4 in Weight: 187 lb BMI 32.1 BP 120/74 Blood Pressure Location Lt brachial Position Sitting Respiration 16 Pulse 82 Pulse Source Monitor Temp 97.7 F L Temp Source Temporal Pulse Oximetry (%) 95 Oxygen Delivery Method room air Intake Visit Reasons: 3 M FU Chief Complaint: follow up chronic conditions Chief Wharfinger Required: No Accompanied by: Self Is patient in pain?: No Allergies Penicillins Allergy (Intermediate, Verified 07/08/24 07:49) Hives Tetracyclines Allergy (Intermediate, Verified 07/08/24 07:49) Nausea Medications ???Medication ???Instructions ???Recorded ???Confirmed ???Type multivitamin 1 tab PO QDAY 02/16/18 07/08/24 History lactobacillus combination no.9 4 4,000 mmu cells PO DAILY 02/27/20 07/08/24 History billion cell capsule (Adult 50 Plus Probiotic) apremilast 30 mg tablet (Otezla) 30 mg PO ONCE 04/01/21 07/08/24 History aspirin 81 mg tablet,delayed 81 mg PO DAILY 04/01/21 07/08/24 History release clobetasol 0.05 % topical cream 1 applic topical DAILY 04/01/21 07/08/24 History biotin 1 mg capsule 1 mg PO DAILY 11/26/22 07/08/24 History mecobalamin (vitamin B12) 2,500 mcg PO 11/26/22 07/08/24 History mcg chewable tablet lisinopril 20 mg tablet 20 mg PO DAILY #90 tabs 11/02/23 07/08/24 Rx pantoprazole 40 mg tablet,delayed See Rx Instructions .Route 11/02/23 07/08/24 Rx release .COMPLEX #90 tabs rosuvastatin 5 mg tablet (Crestor) 5 mg PO DAILY #90 tabs 11/02/23 07/08/24 Rx sertraline 50 mg tablet 50 mg PO DAILY #90 tabs 11/02/23 07/08/24 Rx PFSH Medical History Excessive cerumen in left ear canal Left foot pain Trigger thumb Screening for thyroid disorder Brittle nails Borderline type 2 diabetes mellitus Elevated blood sugar Elevated liver enzymes GERD (gastroesophageal reflux disease) Generalized anxiety disorder Diverticulosis Lichen amyloidosus Wears hearing aid Wears contact lenses Hemorrhoids Right knee pain Health care maintenance Hyperlipidemia Lichen planopilaris Hypertension Surgical History History of right breast biopsy ( 03/2019) History of hysterectomy Family History Mother Blood clot in vein High cholesterol Hypertension Skin cancer Grandmother Colon cancer Father Myocardial infarction High cholesterol Hypertension Heart disease Social History Smoking Status: Never smoker alcohol intake: current alcohol intake frequency: a few times a month Alcohol type: wine substance use type: does not use caffeine: Yes what type of physical activity do you participate in: walking frequency: 3-4 times per week seatbelt use: always do you feel safe at home: Yes additional social history: -Terrance- Retired Patient is at [facility] [employer] Female Reproductive History Menstrual Ab spontaneous: 1 HPI HPI Chief Complaint: follow up chronic conditions Details: MELYSSA HERNANDEZ, is a 64 F who presents to the office today for follow-up of her chronic medical conditions. No acute concerns at this time. History of borderline diabetes, A1c today is at 6.1 down from 6.4. Currently not on any medication. She states that she stays active and feels well. Also history of hypertension, blood pressure today at 120/74 also down from her last visit. She reports less stress overall. Currently on lisinopril which she is taking as prescribed. No chest pain, palpitation or shortness of breath. Other chronic medical conditions are stable. ROS Const Constitutional: No body ache, chills, excessive sweating, fatigue, fever(s), frequent falls, headache(s), snoring, weakness or change in appetite Eyes Eyes: No blurry vision, change in vision, bulging eyes, floaters, eye pain or Light sensitivity ENT ENT: No abnormal hearing, ear or mastoid pain, tinnitus, balance problems, nosebleed/epistaxis, nasal congestion, headache(s), neck pain or sore throat Resp Respiratory: No cough, excessive phlegm production, pain on inspiration, shortness of breath, snoring or wheezing Cardio Cardiology: No chest pain at rest, chest pain with exertion, excessive sweating, dyspnea on exertion, lightheadedness, orthopnea or palpitations Gastro GI: No abdominal pain, change in bow (more content not included)... Normal [facility] Internal Medicine Office Vis kathie 04-04-2024 Internal Medicine Office Visit [facility] [address] [place] [address] [place] [address] OFFICE VISIT Date of Service: 04/04/24 MR#: [id number] Acct: [id number] Name: MELYSSA HERNANDEZ Rep #: [id number] : 1960 Provider: Dr. Roberto dimas MD Age/Sex: 64/F Location: [facility] [place] Status: Signed Intake Vital Signs 10/28/23 07:54 04/04/24 15:20 Height 5 ft 4 in 5 ft 4 in Weight: 190 lb BMI 32.5 BP 138/84 H Blood Pressure Location Lt brachial Position Sitting Respiration 14 Pulse 74 Pulse Source Monitor Temp 98.9 F Temp Source Temporal Pulse Oximetry (%) 97 Oxygen Delivery Method room air Intake Visit Reasons: 4 M FU Chief Complaint: follow up chronic conditions Chief Wharfinger Required: No Is patient in pain?: No Allergies Penicillins Allergy (Intermediate, Verified 04/04/24 15:09) Hives Tetracyclines Allergy (Intermediate, Verified 04/04/24 15:09) Nausea Medications ???Medication ???Instructions ???Recorded ???Confirmed ???Type multivitamin 1 tab PO QDAY 02/16/18 04/04/24 History lactobacillus combination no.9 4 4,000 mmu cells PO DAILY 02/27/20 04/04/24 History billion cell capsule (Adult 50 Plus Probiotic) apremilast 30 mg tablet (Otezla) 30 mg PO ONCE 04/01/21 04/04/24 History aspirin 81 mg tablet,delayed 81 mg PO DAILY 04/01/21 04/04/24 History release clobetasol 0.05 % topical cream 1 applic topical DAILY 04/01/21 04/04/24 History biotin 1 mg capsule 1 mg PO DAILY 11/26/22 04/04/24 History mecobalamin (vitamin B12) 2,500 mcg PO 11/26/22 04/04/24 History mcg chewable tablet lisinopril 20 mg tablet 20 mg PO DAILY #90 tabs 11/02/23 04/04/24 Rx pantoprazole 40 mg tablet,delayed See Rx Instructions .Route 11/02/23 04/04/24 Rx release .COMPLEX #90 tabs rosuvastatin 5 mg tablet (Crestor) 5 mg PO DAILY #90 tabs 11/02/23 04/04/24 Rx sertraline 50 mg tablet 50 mg PO DAILY #90 tabs 11/02/23 04/04/24 Rx PFSH Medical History Excessive cerumen in left ear canal Left foot pain Trigger thumb Screening for thyroid disorder Brittle nails Borderline type 2 diabetes mellitus Elevated blood sugar Elevated liver enzymes GERD (gastroesophageal reflux disease) Generalized anxiety disorder Diverticulosis Lichen amyloidosus Wears hearing aid Wears contact lenses Hemorrhoids Right knee pain Health care maintenance Hyperlipidemia Lichen planopilaris Hypertension Surgical History History of right breast biopsy ( 03/2019) History of hysterectomy Family History Mother Blood clot in vein High cholesterol Hypertension Skin cancer Grandmother Colon cancer Father Myocardial infarction High cholesterol Hypertension Heart disease Social History Smoking Status: Never smoker alcohol intake: current alcohol intake frequency: a few times a month Alcohol type: wine substance use type: does not use caffeine: Yes what type of physical activity do you participate in: walking frequency: 3-4 times per week seatbelt use: always do you feel safe at home: Yes additional social history: -Terrance- Retired Patient is at [facility] Female Reproductive History Menstrual Ab spontaneous: 1 HPI HPI Chief Complaint: follow up chronic conditions Details: MELYSSA HERNANDEZ, is a 64 F who presents to the office today for follow-up of her chronic medical conditions. No acute concerns at this time. A1c today is at 6.4 up from 6. She states that she has not been very compliant with her dietary and lifestyle modifications. Plans to make changes. Not open to medication. History of hypertension, blood pressure today at 138/84 mmHg. Currently on lisinopril. No chest pain, palpitation or shortness of breath. Other chronic medical conditions are stable. ROS Const Constitutional: No body ache, chills, excessive sweating, fatigue, fever(s), frequent falls, headache(s), snoring, weakness, sleep problems or change in appetite Eyes Eyes: No blurry vision, change in vision, dry eyes, bulging eyes, floaters, eye pain or Light sensitivity ENT ENT: No abnormal hearing, ear or mastoid pain, tinnitus, balance problems, nosebleed/epistaxis, nasal congestion, headache(s), neck pain or sore throat Resp Respiratory: No cough, excessive phlegm production, pain on inspiration, shortness of breath, snoring or wheezing Cardio Cardiology: No chest pain at rest, chest pain with exertion, excessive sweating, shortness of breath, dyspnea on exertion, lightheadedness, orthopnea or palpitations Gastro GI: No abdominal pain, change in bowel (more content not included)... Normal [facility] Laboratory - Hematology and Cell countson 10-28-2023 HbA1c (Bld) [Mass fraction] 6.0 % 4.2-6.3 [facility] Absolute lymphocyte countOrd ered By: Anish Friend on 10-24-2023 Lymphocytes Auto (Unsp spec) [#/Vol] 2.15 10*3/uL 0.83-4.51 [facility] Automated lymphocyte count a s percentage of total leukocytesOrdered By: Anish Friend on 10-24-2023 Lymphocytes/100 WBC Auto (Unsp spec) 34.2 % 19-41 [facility] Basophil percentageOrdered B y: Anish Friend on 10-24-2023 Basophils/100 WBC (Bld) 0.8 % 0-1 [facility] Bilirubin [Mass/Vol] 0.50 mg/dL 0.20-1.00 [facility] Comment on above: For patients on eltr ombopag therapy, use of Dimension [place] TBIL is not recommended. Chloride [Moles/Vol] 110 mmol/L 98-107 [facility] Eosinophils/100 WBC (Bld) 1.6 % 0-5 [facility] Glucose [Mass/Vol] 124 mg/dL 74-106 [facility] Comment on above: Fasting Glucose resu lt from 100 to 125 mg/dL suggests IMPAIRED HOMEOSTASIS per A.D.A. criteria. Hemoglobin (Bld) [Mass/Vol] 14.2 g/dL 12.0-15.0 [facility] Monocytes/100 WBC (Bld) 7.2 % 0-10 [facility] Neutrophils (Bld) [#/Vol] 3.5 10*3/uL 2.0-7.7 [facility] Neutrophils/100 WBC (Bld) 56.0 % 47-70 [facility] Potassium [Moles/Vol] 4.2 mmol/L 3.5-5.1 [facility] Protein [Mass/Vol] 6.6 g/dL 6.4-8.2 [facility] Sodium [Moles/Vol] 141 mmol/L 136-145 [facility] WBC (Bld) [#/Vol] 6.3 10*3/uL 4.4-11.0 [facility] Determination of erythrocyte mean corpuscular volume (MCV)Ordered By: Anish Friend on 10-24-2023 MCV (RBC) [Entitic vol] 88.6 fL 81-99 [facility] Erythrocyte distribution wid th ratioOrdered By: Anish Friend on 10-24-2023 Erythrocyte distribution width (RBC) [Ratio] 11.6 % 11.6-14.6 [facility] Erythrocyte distribution wid th standard deviationOrdered By: Anish Friend on 10-24-2023 Erythrocyte distribution width (RBC) [Entitic vol] 37.4 fL 35.1-43.9 [facility] Hematocrit Auto (Bld) [Volum e fraction]Ordered By: Anish Friend on 10-24-2023 Hematocrit (Bld) [Volume fraction] 41.9 % 37-47 [facility] Immature granulocytes/100 WB C Auto (Bld)Ordered By: Anish Friend on 10-24-2023 Immature granulocytes/100 WBC (Bld) 0.200 % 0.0-0.9 [facility] Comment on above: IG% - Immature Granu locytes (promyelocytes, myelocytes and metamyelocytes) > 1% indicates that a LEFT SHIFT is Present. Laboratory - Chemistry and C hemistry - challengeOrdered By: Anish Friend on 10-24-2023 Albumin/Globulin [Mass ratio] 1.3 {ratio} 0.9-2.4 [facility] ALP [Catalytic activity/Vol] 77 U/L 45-117 [facility] ALT [Catalytic activity/Vol] 23 U/L 13-56 [facility] CO2 [Moles/Vol] 29.0 mmol/L 21.0-32.0 [facility] Globulin (S) [Mass/Vol] 2.9 g/dL 2.2-4.2 [facility] Urea nitrogen/Creatinine [Mass ratio] 20.1 mg/mg 10-20 [facility] Laboratory - Hematology and Cell countsOrdered By: Anish Frined on 10-24-2023 MCH (RBC) [Entitic mass] 30.0 pg 27.0-32.0 [facility] MCHC (RBC) [Mass/Vol] 33.9 g/dL 32-36 [facility] Nucleated RBC/100 WBC (Bld) [Ratio] 0 % 0-5 [facility] Platelet mean volume (Bld) [Entitic vol] 10.6 fL 6.2-12.0 [facility] Platelets (Bld) [#/Vol] 199 10*3/uL 150-450 [facility] No Panel InformationOrdered By: Anish Friend on 10-24-2023 Estimated GFR (MDRD) Amer 94 mL/min >60 [facility] Comment on above: GFR Calc Estimated GFR (MDRD) Non-Af Amer 77 mL/min >60 [facility] Comment on above: Non- GFR Calc RBC Auto (Bld) [#/Vol]Ordere d By: Anish Friend on 10-24-2023 RBC (Bld) [#/Vol] 4.73 10*6/uL 4.2-5.4 [facility] Serum or plasma calcium lias urement (mass/volume)Ordered By: Anish Friend on 10-24-2023 Calcium [Mass/Vol] 8.9 mg/dL 8.5-10.1 [facility] Serum or plasma creatinine m easurement (mass/volume)Ordered By: Anish Friend on 10-24-2023 Creatinine [Mass/Vol] 0.80 mg/dL 0.55-1.02 [facility] Comment on above: The validity of the calculated GFR & GFRAA in patients over 70 years has not been determined. Clinical correlation is essential. Serum or plasma urea nitroge n measurement (mass/volume)Ordered By: Anish Friend on 10-24-2023 Urea nitrogen [Mass/Vol] 16 mg/dL 7-18 [facility] Thin prep Papanicolaou smear with manual screeningOrdered By: Anish Friend on 10-24-2023 Thin prep Papanicolaou smear with manual screening 3.7 g/dL 3.2-5.0 [facility] Thin prep Papanicolaou smear with manual screening 17 U/L 15-37 [facility] Thin prep Papanicolaou smear with manual screening 2 5-15 [facility] Basophil percentageOrdered B y: Roberto Murray on 07-22-2023 Bilirubin [Mass/Vol] 0.50 mg/dL 0.20-1.00 [facility] Comment on above: For patients on eltr ombopag therapy, use of Dimension [place] TBIL is not recommended. Chloride [Moles/Vol] 111 mmol/L 98-107 [facility] Cholesterol [Mass/Vol] 173 mg/dL <200 [facility] Comment on above: <200 mg/dL Desirable 200-240 mg/dL Borderline >240 mg/dL High Risk Glucose [Mass/Vol] 126 mg/dL 74-106 [facility] Comment on above: Fasting Glucose resu lt greater than or equal to 126 mg/dL suggests DIABETES MELLITUS per A.D.A. criteria. Potassium [Moles/Vol] 3.9 mmol/L 3.5-5.1 [facility] Protein [Mass/Vol] 6.9 g/dL 6.4-8.2 [facility] Sodium [Moles/Vol] 142 mmol/L 136-145 [facility] Triglyceride [Mass/Vol] 122 mg/dL <199 [facility] Comment on above: The drugs N-Acetylcy steine and Metamizole may falsely depress this assay.Serum Triglycerides Reference Interval Normal <150 mg/dL Borderline high 150 - 199 mg/dL High 200 - 499 mg/dL Very High > or = 500 mg/dL Laboratory - Chemistry and C hemistry - challengeOrdered By: Roberto Murray on 07-22-2023 ALP [Catalytic activity/Vol] 73 U/L 45-117 [facility] ALT [Catalytic activity/Vol] 24 U/L 13-56 [facility] CO2 [Moles/Vol] 25.0 mmol/L 21.0-32.0 [facility] Globulin (S) [Mass/Vol] 3.2 g/dL 2.2-4.2 [facility] Urea nitrogen/Creatinine [Mass ratio] 28.7 mg/mg 10- [facility] Laboratory - Hematology and Cell countson 07-22-2023 HbA1c (Bld) [Mass fraction] 6.0 % 4.2-6.3 [facility] No Panel InformationOrdered By: Roberto Murray on 07-22-2023 Estimated GFR (MDRD) Amer 89 mL/min >60 [facility] Comment on above: GFR Calc Estimated GFR (MDRD) Non-Af Amer 73 mL/min >60 [facility] Comment on above: Non- GFR Calc Serum or plasma albumin lisa urement (mass/volume)Ordered By: Roberto Murray on 07-22-2023 Albumin [Mass/Vol] 3.7 g/dL 3.2-5.0 [facility] Serum or plasma albumin/glob ulin mass ratioOrdered By: Roberto Murray on 07-22-2023 Albumin/Globulin [Mass ratio] 1.2 {ratio} 0.9-2.4 [facility] Serum or plasma calcium lisa urement (mass/volume)Ordered By: Roberto Murray on 07-22-2023 Calcium [Mass/Vol] 9.3 mg/dL 8.5-10.1 [facility] Serum or plasma cholesterol in HDL measurement (mass/volume)Ordered By: Roberto Murray on 07-22-2023 Cholesterol in HDL [Mass/Vol] 60 mg/dL >40 [facility] Comment on above: The drugs N-Acetylcy steine and Metamizole may falsely depress this assay. Reference Range HDL <40 mg/dL Low HDL Cholesterol HDL >or= 60 mg/dL High HDL Cholesterol Serum or plasma cholesterol in VLDL measurement (mass/volume)Ordered By: Roberto Murray on 07-22-2023 Cholesterol in VLDL [Mass/Vol] 24 mg/dL 5-40 [facility] Serum or plasma creatinine m easurement (mass/volume)Ordered By: Roberto Murray on 07-22-2023 Creatinine [Mass/Vol] 0.84 mg/dL 0.55-1.02 [facility] Comment on above: The validity of the calculated GFR & GFRAA in patients over 70 years has not been determined. Clinical correlation is essential. Serum or plasma low density lipoprotein (LDL) cholesterol measurement (mass/volume)Ordered By: Roberto Murray on 07-22-2023 Cholesterol in LDL [Mass/Vol] 89 mg/dL 0-130 [facility] Serum or plasma urea nitroge n measurement (mass/volume)Ordered By: Roberto Murray on 07-22-2023 Urea nitrogen [Mass/Vol] 24 mg/dL 7-18 [facility] Thin prep Papanicolaou smear with manual screeningOrdered By: Roberto Murray on 07-22-2023 Thin prep Papanicolaou smear with manual screening 15 U/L 15-37 [facility] Thin prep Papanicolaou smear with manual screening 6 5-15 [facility] Laboratory - Chemistry and C hemistry - challengeOrdered By: Dr. Murray on 11-10-2022 Cobalamin (Vitamin B12) [Mass/Vol] 330 pg/mL 211-911 [facility] Free T4 [Mass/Vol] 1.11 ng/dL 0.76-1.46 [facility] No Panel InformationOrdered By: Dr. Murray on 11-10-2022 Thyroid Stimulating Hormone (TSH) 1.20 uIU/mL 0.358-3.74 [facility] Whole blood hemoglobin A1c/t otal hemoglobin ratio (mass fraction)Ordered By: Dr. Murray on 11-10-2022 HbA1c (Bld) [Mass fraction] 5.8 % 3.8-5.6 [facility] Comment on above: Normal < 5.7 % Predi abetic 5.7 - 6.4 % Diabetic >or= 6.5 % Please note range changes. Absolute lymphocyte countOrd ered By: Dr. Murray on 08-08-2022 Lymphocytes Auto (Unsp spec) [#/Vol] 1.61 10*3/uL 0.83-4.51 [facility] Basophil percentageOrdered B y: Dr. Murray on 08-08-2022 Basophils/100 WBC (Bld) 0.5 % 0-1 [facility] Cholesterol [Mass/Vol] 167 mg/dL <200 [facility] Comment on above: <200 mg/dL Desirable 200-240 mg/dL Borderline >240 mg/dL High Risk Eosinophils/100 WBC (Bld) 1.4 % 0-5 [facility] Neutrophils (Bld) [#/Vol] 3.6 10*3/uL 2.0-7.7 [facility] Neutrophils/100 WBC (Bld) 62.2 % 47-70 [facility] Triglyceride [Mass/Vol] 84 mg/dL <199 [facility] Comment on above: The drugs N-Acetylcy steine and Metamizole may falsely depress this assay.Serum Triglycerides Reference Interval Normal <150 mg/dL Borderline high 150 - 199 mg/dL High 200 - 499 mg/dL Very High > or = 500 mg/dL WBC (Bld) [#/Vol] 5.8 10*3/uL 4.4-11.0 [facility] Blood erythrocytes count (nu mber/volume)Ordered By: Dr. Murray on 08-08-2022 RBC (Bld) [#/Vol] 4.70 10*6/uL 4.2-5.4 [facility] Blood hemoglobin measurement (mass/volume)Ordered By: Dr. Murray on 08-08-2022 Hemoglobin (Bld) [Mass/Vol] 13.9 g/dL 12.0-15.0 [facility] Blood lymphocytes/100 leukoc ytesOrdered By: Dr. Murray on 08-08-2022 Lymphocytes/100 WBC (Bld) 27.8 % 19-41 [facility] Blood monocytes/100 leukocyt esOrdered By: Dr. Murray on 08-08-2022 Monocytes/100 WBC (Bld) 7.8 % 0-10 [facility] Blood platelet mean volumeOr dered By: Dr. Murray on 08-08-2022 Platelet mean volume (Bld) [Entitic vol] 10.8 fL 6.2-12.0 [facility] Determination of erythrocyte mean corpuscular volume (MCV)Ordered By: Dr. Murray on 08-08-2022 MCV (RBC) [Entitic vol] 89.8 fL 81-99 [facility] Hematocrit Auto (Bld) [Volum e fraction]Ordered By: Dr. Murray on 08-08-2022 Hematocrit (Bld) [Volume fraction] 42.2 % 37-47 [facility] - Hematology and Cell countson 08-08-2022 HbA1c (Bld) [Mass fraction] 5.9 % 4.2-6.3 [facility] - Hematology and Cell countsOrdered By: Dr. Murray on 08-08-2022 Erythrocyte distribution width (RBC) [Entitic vol] 39.7 fL 35.1-43.9 [facility] Erythrocyte distribution width (RBC) [Ratio] 12.1 % 11.6-14.6 [facility] Immature granulocytes/100 WBC (Bld) 0.300 % 0.0-0.9 [facility] Comment on above: IG% - Immature Granu locytes (promyelocytes, myelocytes and metamyelocytes) > 1% indicates that a LEFT SHIFT is Present. MCH (RBC) [Entitic mass] 29.6 pg 27.0-32.0 [facility] Nucleated RBC/100 WBC (Bld) [Ratio] 0 % 0-5 [facility] MCHC Auto (RBC) [Mass/Vol]Or dered By: Dr. Murray on 08-08-2022 MCHC (RBC) [Mass/Vol] 32.9 g/dL 32-36 [facility] Platelets bldOrdered By: Dr. Murray on 08-08-2022 Platelets (Bld) [#/Vol] 208 10*3/uL 150-450 [facility] Serum or plasma cholesterol in HDL measurement (mass/volume)Ordered By: Dr. Murray on 08-08-2022 Cholesterol in HDL [Mass/Vol] 67 mg/dL >40 [facility] Comment on above: The drugs N-Acetylcy steine and Metamizole may falsely depress this assay. Reference Range HDL <40 mg/dL Low HDL Cholesterol HDL >or= 60 mg/dL High HDL Cholesterol Serum or plasma cholesterol in VLDL measurement (mass/volume)Ordered By: Dr. Murray on 08-08-2022 Cholesterol in VLDL [Mass/Vol] 17 mg/dL 5-40 [facility] Serum or plasma low density lipoprotein (LDL) cholesterol measurement (mass/volume)Ordered By: Dr. Murray on 08-08-2022 Cholesterol in LDL [Mass/Vol] 83 mg/dL 0-130 [facility] Whole blood hemoglobin A1c/t otal hemoglobin ratio (mass fraction)on 05-07-2022 HbA1c (Bld) [Mass fraction] 6.1 % 3.8-5.6 [facility] Work Phone: Comment on above: Normal < 5.7 % Predi abetic 5.7 - 6.4 % Diabetic >or= 6.5 % Please note range changes. Basophil percentageon 2021 Bilirubin [Mass/Vol] 0.80 mg/dL 0.20-1.00 [facility] Work Phone: Comment on above: For patients on eltr ombopag therapy, use of Dim[employer] [place] TBIL is not recommended. Chloride [Moles/Vol] 109 mmol/L 98-107 [facility] Work Phone: Glucose [Mass/Vol] 129 mg/dL 74-106 [facility] Work Phone: Comment on above: Fasting Glucose resu lt greater than or equal to 126 mg/dL suggests DIABETES MELLITUS per A.D.A. criteria. Potassium [Moles/Vol] 3.8 mmol/L 3.5-5.1 [facility] Work Phone: Protein [Mass/Vol] 6.4 g/dL 6.4-8.2 [facility] Work Phone: Sodium [Moles/Vol] 140 mmol/L 136-145 [facility] Work Phone: Laboratory - Chemistry and C hemistry - challengeon 05-06-2022 ALP [Catalytic activity/Vol] 80 U/L 45-117 [facility] Work Phone: ALT [Catalytic activity/Vol] 25 U/L 13-56 [facility] Work Phone: CO2 [Moles/Vol] 25.0 mmol/L 21.0-32.0 [facility] Work Phone: Globulin (S) [Mass/Vol] 3.0 g/dL 2.2-4.2 [facility] Work Phone: Urea nitrogen/Creatinine [Mass ratio] 21.3 mg/mg 10-20 [facility] Work Phone: No Panel Informationon 05-06 Estimated GFR (MDRD) Amer 101 mL/min >60 [facility] Work Phone: Comment on above: GFR Calc Estimated GFR (MDRD) Non-Af Amer 83 mL/min >60 [facility] Work Phone: Comment on above: Non- GFR Calc Serum or plasma albumin lisa urement (mass/volume)on 05-06-2022 Albumin [Mass/Vol] 3.4 g/dL 3.2-5.0 [facility] Work Phone: Serum or plasma albumin/glob ulin mass ratioon 05-06-2022 Albumin/Globulin [Mass ratio] 1.1 {ratio} 0.9-2.4 [facility] Work Phone: Serum or plasma calcium lisa urement (mass/volume)on 05-06-2022 Calcium [Mass/Vol] 9.3 mg/dL 8.5-10.1 [facility] Work Phone: Serum or plasma creatinine m easurement (mass/volume)on 05-06-2022 Creatinine [Mass/Vol] 0.75 mg/dL 0.55-1.02 [facility] Work Phone: Comment on above: The validity of the calculated GFR & GFRAA in patients over 70 years has not been determined. Clinical correlation is essential. Serum or plasma urea nitroge n measurement (mass/volume)on 05-06-2022 Urea nitrogen [Mass/Vol] 16 mg/dL 7-18 [facility] Work Phone: Thin prep Papanicolaou smear with manual screeningon 05-06-2022 Thin prep Papanicolaou smear with manual screening 16 U/L 15-37 [facility] Work Phone: Thin prep Papanicolaou smear with manual screening 6 5-15 [facility] Work Phone: Basophil percentageon 2021 Bilirubin [Mass/Vol] 0.80 mg/dL 0.20-1.00 [facility] Work Phone: Comment on above: For patients on eltr ombopag therapy, use of Dimension [place] TBIL is not recommended. Chloride [Moles/Vol] 105 mmol/L 98-107 [facility] Work Phone: Glucose [Mass/Vol] 120 mg/dL 74-106 [facility] Work Phone: Comment on above: Fasting Glucose resu lt from 100 to 125 mg/dL suggests IMPAIRED HOMEOSTASIS per A.D.A. criteria. Potassium [Moles/Vol] 3.7 mmol/L 3.5-5.1 [facility] Work Phone: Protein [Mass/Vol] 7.1 g/dL 6.4-8.2 [facility] Work Phone: Sodium [Moles/Vol] 141 mmol/L 136-145 [facility] Work Phone: Laboratory - Chemistry and C hemistry - challengeon 01-28-2022 ALP [Catalytic activity/Vol] 79 U/L 45-117 [facility] Work Phone: ALT [Catalytic activity/Vol] 30 U/L 13-56 [facility] Work Phone: Amylase [Catalytic activity/Vol] 54 U/L 5-55 [facility] Work Phone: CO2 [Moles/Vol] 29.0 mmol/L 21.0-32.0 [facility] Work Phone: Globulin (S) [Mass/Vol] 3.2 g/dL 2.2-4.2 [facility] Work Phone: Urea nitrogen/Creatinine [Mass ratio] 17.8 mg/mg 10-20 [facility] [facility] No Panel Informationon 01-28 Estimated GFR (MDRD) Amer 96 mL/min >60 [facility] Work Phone: Comment on above: GFR Calc Estimated GFR (MDRD) Non-Af Amer 79 mL/min >60 [facility] Work Phone: Comment on above: Non- GFR Calc Serum or plasma albumin lisa urement (mass/volume)on 01-28-2022 Albumin [Mass/Vol] 3.9 g/dL 3.2-5.0 [facility] Work Phone: Serum or plasma albumin/glob ulin mass ratioon 01-28-2022 Albumin/Globulin [Mass ratio] 1.2 {ratio} 0.9-2.4 [facility] Work Phone: Serum or plasma calcium lisa urement (mass/volume)on 01-28-2022 Calcium [Mass/Vol] 9.5 mg/dL 8.5-10.1 [facility] Work Phone: Serum or plasma creatinine m easurement (mass/volume)on 01-28-2022 Creatinine [Mass/Vol] 0.79 mg/dL 0.55-1.02 [facility] Work Phone: Comment on above: The validity of the calculated GFR & GFRAA in patients over 70 years has not been determined. Clinical correlation is essential. Serum or plasma urea nitroge n measurement (mass/volume)on 01-28-2022 Urea nitrogen [Mass/Vol] 14 mg/dL 7-18 [facility] Work Phone: Thin prep Papanicolaou smear with manual screeningon 01-28-2022 Thin prep Papanicolaou smear with manual screening 21 U/L 15-37 [facility] Work Phone: Thin prep Papanicolaou smear with manual screening 7 5-15 [facility] Work Phone: Basophil percentageon 2021 Bilirubin [Mass/Vol] 0.70 mg/dL 0.20-1.00 [facility] Work Phone: Comment on above: For patients on eltr ombopag therapy, use of [facility] [place] TBIL is not recommended. Chloride [Moles/Vol] 107 mmol/L 98-107 [facility] Work Phone: Glucose [Mass/Vol] 130 mg/dL 74-106 [facility] Work Phone: Comment on above: Fasting Glucose resu lt greater than or equal to 126 mg/dL suggests DIABETES MELLITUS per A.D.A. criteria. Potassium [Moles/Vol] 4.0 mmol/L 3.5-5.1 [facility] Work Phone: Protein [Mass/Vol] 6.9 g/dL 6.4-8.2 [facility] Work Phone: Sodium [Moles/Vol] 140 mmol/L 136-145 [facility] Work Phone: Laboratory - Chemistry and C hemistry - challengeon 01-07-2022 ALP [Catalytic activity/Vol] 116 U/L 45-117 [facility] Work Phone: ALT [Catalytic activity/Vol] 214 U/L 13-56 [facility] Work Phone: Amylase [Catalytic activity/Vol] 238 U/L 5-55 [facility] Work Phone: CO2 [Moles/Vol] 25.0 mmol/L 21.0-32.0 [facility] Work Phone: Globulin (S) [Mass/Vol] 3.4 g/dL 2.2-4.2 [facility] Work Phone: Urea nitrogen/Creatinine [Mass ratio] 17.5 mg/mg 10-20 [facility] Work Phone: No Panel Informationon 01-07 Estimated GFR (MDRD) Amer 103 mL/min >60 [facility] Work Phone: Comment on above: GFR Calc Estimated GFR (MDRD) Non-Af Amer 85 mL/min >60 [facility] Work Phone: Comment on above: Non- GFR Calc Hepatitis A IgM Antibody Negative Negative [facility] Work Phone: Comment on above: Performed at: [address] [id number] Director: Charles Conn PhD, Phone: [phone] Hepatitis B Surface Antigen Non-Reactive Nonreactive [facility] Work Phone: Hepatitis C Antibody Non-Reactive Nonreactive [facility] Work Phone: Comment on above: Non Reactive: < 0.8 Equivocal: >/= 0.8 to < 1.0 Reactive: >/= 1.0The CDC recommends that a reactive/equivocal HCV antibody result be followed up by the HCV Nucleic Acid Amplificationtest (121510) Serum or plasma albumin lisa urement (mass/volume)on 01-07-2022 Albumin [Mass/Vol] 3.5 g/dL 3.2-5.0 [facility] Work Phone: Serum or plasma albumin/glob ulin mass ratioon 01-07-2022 Albumin/Globulin [Mass ratio] 1.0 {ratio} 0.9-2.4 [facility] Work Phone: Serum or plasma calcium lisa urement (mass/volume)on 01-07-2022 Calcium [Mass/Vol] 9.4 mg/dL 8.5-10.1 [facility] Work Phone: Serum or plasma creatinine m easurement (mass/volume)on 01-07-2022 Creatinine [Mass/Vol] 0.74 mg/dL 0.55-1.02 [facility] Work Phone: Comment on above: The validity of the calculated GFR & GFRAA in patients over 70 years has not been determined. Clinical correlation is essential. Serum or plasma urea nitroge n measurement (mass/volume)on 01-07-2022 Urea nitrogen [Mass/Vol] 13 mg/dL 7-18 [facility] Work Phone: Thin prep Papanicolaou smear with manual screeningon 01-07-2022 Thin prep Papanicolaou smear with manual screening 62 U/L 15-37 [facility] Work Phone: Thin prep Papanicolaou smear with manual screening 8 5-15 [facility] Work Phone: Absolute lymphocyte counton 12-27-2021 Lymphocytes Auto (Unsp spec) [#/Vol] 0.97 10*3/uL 0.83-4.51 [facility] Work Phone: Basophil percentageon 2021 Basophils/100 WBC (Bld) 0.5 % 0-1 [facility] Work Phone: Bilirubin [Mass/Vol] 3.30 mg/dL 0.20-1.00 [facility] Work Phone: Comment on above: For patients on eltr ombopag therapy, use of [employer] [place] TBIL is not recommended. Chloride [Moles/Vol] 107 mmol/L 98-107 [facility] Work Phone: Eosinophils/100 WBC (Bld) 3.4 % 0-5 [facility] Work Phone: Glucose [Mass/Vol] 130 mg/dL 74-106 [facility] Work Phone: [phone] Comment on above: Fasting Glucose resu lt greater than or equal to 126 mg/dL suggests DIABETES MELLITUS per A.D.A. criteria. Neutrophils (Bld) [#/Vol] 4.5 10*3/uL 2.0-7.7 [facility] Work Phone: Neutrophils/100 WBC (Bld) 71.9 % 47-70 [facility] Work Phone: Potassium [Moles/Vol] 4.0 mmol/L 3.5-5.1 [facility] Work Phone: Protein [Mass/Vol] 7.5 g/dL 6.4-8.2 [facility] Work Phone: Sodium [Moles/Vol] 140 mmol/L 136-145 [facility] Work Phone: WBC (Bld) [#/Vol] 6.2 10*3/uL 4.4-11.0 [facility] Work Phone: Blood erythrocytes count (nu mber/volume)on 12-27-2021 RBC (Bld) [#/Vol] 4.96 10*6/uL 4.2-5.4 [facility]: Blood hemoglobin measurement (mass/volume)on 12-27-2021 Hemoglobin (Bld) [Mass/Vol] 14.8 g/dL 12.0-15.0 [facility] Work Phone: Blood lymphocytes/100 leukoc yteson 12-27-2021 Lymphocytes/100 WBC (Bld) 15.7 % 19-41 [facility] Work Phone: Blood monocytes/100 leukocyt eson 12-27-2021 Monocytes/100 WBC (Bld) 8.2 % 0-10 [facility] Work Phone: Blood platelet mean volumeon 12-27-2021 Platelet mean volume (Bld) [Entitic vol] 11.4 fL 6.2-12.0 [facility] Work Phone: Determination of erythrocyte mean corpuscular volume (MCV)on 12-27-2021 MCV (RBC) [Entitic vol] 89.3 fL 81-99 [facility] Work Phone: Hematocrit Auto (Bld) [Volum e fraction]on 12-27-2021 Hematocrit (Bld) [Volume fraction] 44.3 % 37-47 [facility] Work Phone: Laboratory - Chemistry and C hemistry - challengeon 12-27-2021 ALP [Catalytic activity/Vol] 184 U/L 45-117 [facility] Work Phone: ALT [Catalytic activity/Vol] 480 U/L 13-56 [facility] Work Phone: CO2 [Moles/Vol] 25.0 mmol/L 21.0-32.0 [facility] Work Phone: Free T4 [Mass/Vol] 1.25 ng/dL 0.76-1.46 [facility] Work Phone: Globulin (S) [Mass/Vol] 3.7 g/dL 2.2-4.2 [facility] Work Phone: Urea nitrogen/Creatinine [Mass ratio] 10.0 mg/mg 10-20 [facility] Work Phone: Laboratory - Hematology and Cell countson 12-27-2021 Erythrocyte distribution width (RBC) [Entitic vol] 40.5 fL 35.1-43.9 [facility] Work Phone: Erythrocyte distribution width (RBC) [Ratio] 12.4 % 11.6-14.6 [facility] Work Phone: Immature granulocytes/100 WBC (Bld) 0.300 % 0.0-0.9 [facility] Work Phone: Comment on above: IG% - Immature Granu locytes (promyelocytes, myelocytes and metamyelocytes) > 1% indicates that a LEFT SHIFT is Present. MCH (RBC) [Entitic mass] 29.8 pg 27.0-32.0 [facility] Work Phone: Nucleated RBC/100 WBC (Bld) [Ratio] 0 % 0-5 [facility] Work Phone: MCHC Auto (RBC) [Mass/Vol]on 12-27-2021 MCHC (RBC) [Mass/Vol] 33.4 g/dL 32-36 [facility] Work Phone: No Panel Informationon 12-27 Estimated GFR (MDRD) Amer 94 mL/min >60 [facility] Work Phone: Comment on above: GFR Calc Estimated GFR (MDRD) Non-Af Amer 78 mL/min >60 [facility] Work Phone: Comment on above: Non- GFR Calc Thyroid Stimulating Hormone (TSH) 0.52 uIU/mL 0.358-3.74 [facility] Work Phone: Platelets bldon 12-27-2021 Platelets (Bld) [#/Vol] 198 10*3/uL 150-450 [facility] Work Phone: Serum or plasma albumin lisa urement (mass/volume)on 12-27-2021 Albumin [Mass/Vol] 3.8 g/dL 3.2-5.0 [facility] Work Phone: Serum or plasma albumin/glob ulin mass ratioon 12-27-2021 Albumin/Globulin [Mass ratio] 1.0 {ratio} 0.9-2.4 [facility] Work Phone: Serum or plasma calcium lisa urement (mass/volume)on 12-27-2021 Calcium [Mass/Vol] 9.3 mg/dL 8.5-10.1 [facility] Work Phone: Serum or plasma creatinine m easurement (mass/volume)on 12-27-2021 Creatinine [Mass/Vol] 0.80 mg/dL 0.55-1.02 [facility] Work Phone: Comment on above: The validity of the calculated GFR & GFRAA in patients over 70 years has not been determined. Clinical correlation is essential. Serum or plasma urea nitroge n measurement (mass/volume)on 12-27-2021 Urea nitrogen [Mass/Vol] 8 mg/dL 7-18 [facility] Work Phone: Thin prep Papanicolaou smear with manual screeningon 12-27-2021 Thin prep Papanicolaou smear with manual screening 194 U/L [facility] Work Phone: Thin prep Papanicolaou smear with manual screening 8 5-15 [facility] Work Phone: Wound Culture/Stainon 2020 Wound Culture/Stain Specimen Desc: Wound POSTERIOR MID PARIETAL SCALP Sp. Request/Comment: SWB Smear Result Rare Gram positive cocci in clusters(*) Culture Result Rare Serratia marcescens(*) Report Status [id number] FINAL Organism: Method: VMIC ANTIBIOTIC INTERPRETATION BETTE STATUS Ampicillin R F Gentamicin S F Trimeth sulfameth S F Ciprofloxacin S F Cefepime S F Ceftriaxone S F Meropenem S F Ertapenem S F Organism F Method: BETTE ANTIBIOTIC INTERPRETATION BETTE STATUS Piperacillin/Tazobac S F Normal [facility] Reference Lab Office Visit: ayala gynon 01-11 Documentation of current medications (procedure) Done Invalid Interpretation Code [facility] Fall risk assessment No [facility] Hemoglobin presence in stool not done [facility] Protein mass conc Done [facility] Tobacco smoking status ARIS Never [facility] Tobacco smoking status ARIS Never smoker [facility] Tobacco use [facility] Never smoker Invalid Interpretation Code [facility] Vital Signs Date Time Vital Sign Value Performing Clinician Faci lity 02-24-2025 08:26-0400 Body height 162.[address] Roberto Murray MD Work Phone: [facility] 02-24-2025 08:26-0400 Body mass index (BMI) [Ratio] 32 kg/m2 Dr. Roberto Murray MD Work Phone: [facility] 02-24-2025 08:26-0400 Body temperature 97.5 [degF] Dr. Roberto Murray MD Work Phone: [facility] 02-24-2025 08:26-0400 Body weight 84.[address] Roberto Murray MD Work Phone: [facility] 02-24-2025 08:26-0400 Diastolic blood pressure 66 mm[Hg] Dr. Roberto Murray MD Work Phone: [facility] 02-24-2025 08:26-0400 Heart rate 71 /min Dr. Roberto Murray MD Work Phone: [facility] 02-24-2025 08:26-0400 Respiratory rate 16 /min Dr. Roberto Murray MD Work Phone: [facility] 02-24-2025 08:26-0400 SaO2% (BldA) [Mass fraction] 95 % Dr. Roberto Murray MD Work Phone: [facility] 02-24-2025 08:26-0400 Systolic blood pressure 122 mm[Hg] Dr. Roberto Murray MD Work Phone: [facility] 11-11-2024 08:54-0400 Body mass index (BMI) [Ratio] 32.2 kg/m2 Dr. Roberto Murray MD Work Phone: [facility] 11-11-2024 08:54-0400 Body temperature 98.1 [degF] Dr. Roberto Murray MD Work Phone: [facility] 11-11-2024 08:54-0400 Body weight 85.[address] Roberto Murray MD Work Phone: [facility] 11-11-2024 08:54-0400 Diastolic blood pressure 78 mm[Hg] Dr. Roberto Murray MD Work Phone: [facility] 11-11-2024 08:54-0400 Heart rate 70 /min Dr. Roberto Murray MD Work Phone: [facility] 11-11-2024 08:54-0400 Respiratory rate 16 /min Dr. Roberto Murray MD Work Phone: [facility] 11-11-2024 08:54-0400 SaO2% (BldA) [Mass fraction] 97 % Dr. Roberto Murray MD Work Phone: [facility] 11-11-2024 08:54-0400 Systolic blood pressure 112 mm[Hg] Dr. Roberto Murray MD Work Phone: [facility] 10-28-2023 07:54-0400 Body height 162.[address] Roberto Murray Work Phone: [facility] 10-28-2023 07:54-0400 Body mass index (BMI) [Ratio] 31.4 kg/m2 Dr. Roberto Murray Work Phone: [facility] 10-28-2023 07:54-0400 Body temperature 97.5 [degF] Dr. Roberto Murray Work Phone: [facility] 10-28-2023 07:54-0400 Body weight [address] Roberto Murray Work Phone: [facility] 10-28-2023 07:54-0400 Diastolic blood pressure 80 mm[Hg] Dr. Roberto Murray Work Phone: [facility] 10-28-2023 07:54-0400 Heart rate 67 /min Dr. Roberto Murray Work Phone: [facility] 10-28-2023 07:54-0400 Respiratory rate 18 /min Dr. Roberto Murray Work Phone: [facility] 10-28-2023 07:54-0400 SaO2% (BldA) [Mass fraction] 96 % Dr. Roberto Murray Work Phone: [facility] 10-28-2023 07:54-0400 Systolic blood pressure 122 mm[Hg] Dr. Roberto Murray Work Phone: [facility] 07-22-2023 08:00-0500 Body height 162.[address] Roberto Murray Work Phone: [facility] 07-22-2023 08:00-0500 Body mass index (BMI) [Ratio] 31.9 kg/m2 Dr. Roberto Murray Work Phone: [facility] 07-22-2023 08:00-0500 Body temperature 97 [degF] Dr. Roberto Murray Work Phone: [facility] 07-22-2023 08:00-0500 Body weight 84.[address] Roberto Murray Work Phone: [facility] 07-22-2023 08:00-0500 Diastolic blood pressure 80 mm[Hg] Dr. Roberto Murray Work Phone: [facility] 07-22-2023 08:00-0500 Heart rate 72 /min Dr. Roberto Murray Work Phone: [facility] 07-22-2023 08:00-0500 Respiratory rate 14 /min Dr. Roberto Murray Work Phone: [facility] 07-22-2023 08:00-0500 SaO2% (BldA) [Mass fraction] 96 % Dr. Roberto Murray Work Phone: [facility] 07-22-2023 08:00-0500 Systolic blood pressure 120 mm[Hg] Dr. Roberto Murray Work Phone: [facility] 04-23-2023 16:14-0400 Body mass index (BMI) [Ratio] 31.1 kg/m2 Dr. Roberto Murray Work Phone: [facility] 04-23-2023 16:14-0400 Body weight 82.[address] Roberto Murray Work Phone: [facility] 04-23-2023 16:14-0400 Diastolic blood pressure 79 mm[Hg] Dr. Roberto Murray Work Phone: [facility] 04-23-2023 16:14-0400 Systolic blood pressure 131 mm[Hg] Dr. Roberto Murray Work Phone: [facility] 11-10-2022 08:10-0400 Body height 162.[address] Roberto Murray Work Phone: [facility] 11-10-2022 08:10-0400 Body mass index (BMI) [Ratio] 29.8 kg/m2 Dr. Roberto Murray Work Phone: [facility] 11-10-2022 08:10-0400 Body temperature 98.7 [degF] Dr. Roberto Murray Work Phone: [facility] 11-10-2022 08:10-0400 Body weight 78.[address] Roberto Murray Work Phone: [facility] 11-10-2022 08:10-0400 Diastolic blood pressure 82 mm[Hg] Dr. Roberto Murray Work Phone: [facility] 11-10-2022 08:10-0400 Heart rate 69 /min Dr. Roberto Murray Work Phone: [facility] 11-10-2022 08:10-0400 Respiratory rate 14 /min Dr. Roberto Murray Work Phone: [facility] 11-10-2022 08:10-0400 SaO2% (BldA) [Mass fraction] 98 % Dr. Roberto Murray Work Phone: [facility] 11-10-2022 08:10-0400 Systolic blood pressure 142 mm[Hg] Dr. Roberto Murray Work Phone: [facility] 08-08-2022 08:09-0500 Body mass index (BMI) [Ratio] 30.7 kg/m2 Dr. Roberto Murray Work Phone: [facility] 08-08-2022 08:09-0500 Body temperature 95.9 [degF] Dr. Roberto Murray Work Phone: [facility] 08-08-2022 08:09-0500 Body weight 81.[address] Roberto Murray Work Phone: [facility] 08-08-2022 08:09-0500 Diastolic blood pressure 80 mm[Hg] Dr. Roberto Murray Work Phone: [facility] 08-08-2022 08:09-0500 Heart rate 66 /min Dr. Roberto Murray Work Phone: [facility] 08-08-2022 08:09-0500 Respiratory rate 16 /min Dr. Roberto Murray Work Phone: [facility] 08-08-2022 08:09-0500 SaO2% (BldA) [Mass fraction] 96 % Dr. Roberto Murray Work Phone: [facility] 08-08-2022 08:09-0500 Systolic blood pressure 136 mm[Hg] Dr. Roberto Murray Work Phone: [facility] 05-06-2022 08:04-0400 Body height 162.[address] Roberto Murray Work Phone: [facility] Work Phone: 05-06-2022 08:04-0400 Body mass index (BMI) [Ratio] 31.9 kg/m2 Dr. Roberto Murray Work Phone: [facility] Work Phone: 05-06-2022 08:04-0400 Body temperature 99 [degF] Dr. Roberto Murray Work Phone: [facility] Work Phone: 05-06-2022 08:04-0400 Body weight 84.[address] Roberto Murray Work Phone: [facility] Work Phone: 05-06-2022 08:04-0400 Diastolic blood pressure 82 mm[Hg] Dr. Roberto Murray Work Phone: [facility] Work Phone: 05-06-2022 08:04-0400 Heart rate 75 /min Dr. Roberto Murray Work Phone: [facility] Work Phone: 05-06-2022 08:04-0400 Respiratory rate 16 /min Dr. Roberto Murray Work Phone: [facility] Work Phone: 05-06-2022 08:04-0400 SaO2% (BldA) [Mass fraction] 98 % Dr. Roberto Murray Work Phone: [facility] Work Phone: 05-06-2022 08:04-0400 Systolic blood pressure 136 mm[Hg] Dr. Roberto Murray Work Phone: [facility] Work Phone: 04-18-2022 13:48-0400 Body mass index (BMI) [Ratio] 31.9 kg/m2 Dr. Roberto Murray Work Phone: [facility] Work Phone: 04-18-2022 13:48-0400 Body weight 84.[address] Roberto Murray Work Phone: [facility] Work Phone: 04-18-2022 13:48-0400 Diastolic blood pressure 81 mm[Hg] Dr. Roberto Murray Work Phone: [facility] Work Phone: 04-18-2022 13:48-0400 Systolic blood pressure 148 mm[Hg] Dr. Roberto Murray Work Phone: [facility] Work Phone: 01-28-2022 08:03-0400 Body height 162.[address] Roberto Murray Work Phone: [facility] Work Phone: 01-28-2022 08:03-0400 Body mass index (BMI) [Ratio] 30.9 kg/m2 Dr. Roberto Murray Work Phone: [facility] Work Phone: 01-28-2022 08:03-0400 Body temperature 98.3 [degF] Dr. Roberto Murray Work Phone: [facility] Work Phone: 01-28-2022 08:03-0400 Body weight 81.[address] Roberto Murray Work Phone: [facility] Work Phone: 01-28-2022 08:03-0400 Diastolic blood pressure 76 mm[Hg] Dr. Roberto Murray Work Phone: [facility] Work Phone: 01-28-2022 08:03-0400 Heart rate 70 /min Dr. Roberto Murray Work Phone: [facility] Work Phone: 01-28-2022 08:03-0400 Respiratory rate 16 /min Dr. Roberto Murray Work Phone: [facility] Work Phone: 01-28-2022 08:03-0400 SaO2% (BldA) [Mass fraction] 96 % Dr. Roberto Murray Work Phone: [facility] Work Phone: 01-28-2022 08:03-0400 Systolic blood pressure 122 mm[Hg] Dr. Roberto Murray Work Phone: [facility] Work Phone: 12-27-2021 14:19-0400 Body height 162.[address] Roberto Murray Work Phone: [facility] Work Phone: 12-27-2021 14:19-0400 Body mass index (BMI) [Ratio] 31.1 kg/m2 Dr. Roberto Murray Work Phone: [facility] Work Phone: 12-27-2021 14:19-0400 Body temperature 98.4 [degF] Dr. Roberto Murray Work Phone: [facility] Work Phone: 12-27-2021 14:19-0400 Body weight 82.[address] Roberto Murray Work Phone: [facility] Work Phone: 12-27-2021 14:19-0400 Diastolic blood pressure 70 mm[Hg] Dr. Roberto Murray Work Phone: [facility] Work Phone: 12-27-2021 14:19-0400 Heart rate 83 /min Dr. Roberto Murray Work Phone: [facility] Work Phone: 12-27-2021 14:19-0400 Respiratory rate 16 /min Dr. Roberto Murray Work Phone: [facility] Work Phone: 12-27-2021 14:19-0400 SaO2% (BldA) [Mass fraction] 95 % Dr. Roberto Murray Work Phone: [facility] Work Phone: 12-27-2021 14:19-0400 Systolic blood pressure 114 mm[Hg] Dr. Roberto Murray Work Phone: [facility] Work Phone: 09-18-2021 08:10-0500 Body mass index (BMI) [Ratio] 32.1 kg/m2 Dr. Roberto Murray Work Phone: [facility] Work Phone: 09-18-2021 08:10-0500 Body temperature 98.2 [degF] Dr. Roberto Murray Work Phone: [facility] Work Phone: 09-18-2021 08:10-0500 Body weight 84.[address] Roberto Murray Work Phone: [facility] Work Phone: 09-18-2021 08:10-0500 Diastolic blood pressure 74 mm[Hg] Dr. Roberto Murray Work Phone: [facility] Work Phone: 09-18-2021 08:10-0500 Heart rate 76 /min Dr. Roberto Murray Work Phone: [facility] Work Phone: 09-18-2021 08:10-0500 Respiratory rate 14 /min Dr. Roberto Murray Work Phone: [facility] Work Phone: 09-18-2021 08:10-0500 SaO2% (BldA) [Mass fraction] 98 % Dr. Roberto Murray Work Phone: [facility] Work Phone: 09-18-2021 08:10-0500 Systolic blood pressure 126 mm[Hg] Dr. Roberto Murray Work Phone: [facility] Work Phone: 02-06-2017 09:14-0400 BMI (Body Mass Index) 31.92 kg/m2 Georgina Mckenzie MD [facility] 02-06-2017 09:14-0400 Body Temperature 98.1 [degF] Georgina Mckenzie MD [facility] 02-06-2017 09:14-0400 BP Diastolic 86 mm[Hg] Georgina Mckenzie MD [facility] 02-06-2017 09:14-0400 BP Systolic 132 mm[Hg] Georgina Mckenzie MD [facility] 02-06-2017 09:14-0400 Height 160.02 cm Georgina Mckenzie MD [facility] 02-06-2017 09:14-0400 Pulse (Heart Rate) 70 /min Georgina Mckenzie MD [facility] 02-06-2017 09:14-0400 Respiratory Rate 16 /min Georgina Mckenzie MD [facility] 02-06-2017 09:14-0400 Weight 81.74 kg Georgina Mckenzie MD [facility] Encounters Encounter Date Encounter Type Care Provider Facility Start: 03-29-2025 ambulatory Roberto Hicks ty:[facility] Start: 02-24-2025 End: 02-24-[address] Roberto Murray MD -[facility] Work Phone: Start: 02-24-2025 End: 02-24-[address] Roberto Murray MD [facility] Start: 02-24-2025 End: 02-24-[address] Roberto Murray MD Work Phone: -[facility] Start: 02-24-2025 End: 02-24-2025 ambulatory Roberto Joannemariely Facility:[facility] Start: 11-11-2024 End: 11-11-[address] Roberto Murray MD -[facility] Work Phone: Start: 11-11-2024 End: 11-11-2024 ambulatory Efann-marie Rubioe Facility:[facility] Start: 07-08-2024 End: 07-08-2024 ambulatory Efewongbe Oleghe Facility:[facility] Start: 04-04-2024 End: 04-04-2024 ambulatory Efewshirlandrahul Rubioe Facility:[facility] Start: 10-30-2023 End: 10-30-[address] Roberto Murray Work Phone: [facility] Work Phone: Start: 10-30-2023 End: 10-30-[address] Roberto Murray Work Phone: [facility] Work Phone: Start: 10-28-2023 End: 10-28-2023 Encounter for general adult medical examination without abnormal findings Dr. Roberto Murray Work Phone: [facility] Start: 10-28-2023 End: 10-28-[address] Roberto Murray Work Phone: [facility] Work Phone: Start: 10-24-2023 End: 10-24-[address] Roberto Murray Work Phone: [facility] Work Phone: Start: 10-24-2023 End: 10-24-[address] Roberto Murray Work Phone: [facility] Work Phone: Start: 07-22-2023 End: 07-22-[address] Roberto Murray Work Phone: [facility] Work Phone: Start: 07-22-2023 End: 07-22-[address] Roberto Murray Work Phone: [facility] Work Phone: Start: 04-23-2023 End: 04-23-[address] Roberto Murray Work Phone: [facility] Work Phone: Start: 11-10-2022 End: 11-10-[address] Roberto Murray Work Phone: [facility] Work Phone: Start: 11-10-2022 End: 11-10-[address] Roberto Murray Work Phone: [facility] Start: 08-08-2022 End: 08-08-[address] Roberto Murray Work Phone: [facility] Start: 05-20-2022 End: 05-20-[address] Roberto Murray Work Phone: [facility] Work Phone: Start: 05-20-2022 End: 05-20-[address] Roberto Murray Work Phone: [facility] Start: 05-06-2022 End: 05-06-[address] Roberto Murray Work Phone: [facility] Work Phone: Start: 05-06-2022 End: 05-06-[address] Roberto Murray Work Phone: [facility] Start: 04-18-2022 End: 04-18-[address] Roberto Camejo Phone: [facility] Start: 01-28-2022 End: 01-28-[address] Roberto Murray Work Phone: [facility] Start: 01-14-2022 Non-patient / Non-visit Dr. Hyacinth Murray Work Phone: [facility] Start: 01-07-2022 End: 01-07-[address] Roberto Camejo Phone: [facility] [place] Start: 12-27-2021 End: 12-27-[address] Roberto Murray Work Phone: [facility] [place] Start: 12-27-2021 End: 12-27-[address] Roberto Camejo Phone: [facility] Start: 09-18-2021 End: 09-18-[address] Roberto Camejo Phone: [facility] Start: 02-03-[address] Roberto Murray Work Phone: [facility] Procedures Date Procedure Procedure Detail Performing Clinician Start: 10-30-2023 Screening mammography José Camejo Phone: Start: 05-20-2022 Screening mammography José Camejo Phone: Start: 02-06-2017 Diabetes mellitus screening Screening, diabetes mellitus Georgina Mckenzie MD Start: 02-06-2017 Gynecologic examination Adolescent Specialist annual e xam Georgina Mckenzie MD Start: 02-06-2017 Screening mammography Screenin g mammogram for breast cancer Georgina Mckenzie MD H/O: hysterectomy History of hysterectomy Dr. Roberto Murray Work Phone: Comment on above: [facility] Plan of Treatment Date Care Activity Detail Author Start: 11-10-2022 Patient referral [facility] Work Phone: Start: 01-14-2022 Patient referral [facility] Work Phone: Start: 12-27-2021 Patient referral [facility] Work Phone: Start: 02-06-2017 End: 02-06-2017 Appointment Appointment [facility] Start: 02-06-2017 End: 02-06-2017 Glucose *Glucose, Fasting [facility] Start: 02-06-2017 End: 02-06-2017 Glucose mass conc *Glucose, Fasting [facility] Start: 02-06-2017 End: 02-06-2017 Lipid panel Lipid Panel [facility] Start: 02-06-2017 End: 02-06-2017 Mammogram, screening Mammogram, Screening, both breasts [facility] MG Breast - bilatera l Screening [facility] Work Phone: MG Breast - bilatera l Screening [facility] Patient referral [facility] Work Phone: Immunizations Immunization Date Immunization Notes Care Provider Fa [facility] 03-11-2024 influenza, injectabl e, quadrivalent, preservative free Dr. Roberto Murray MD Work Phone: [facility] 10-25-2020 Covid (Moderna) Dr. Nancy Murray Work Phone: [facility] 09-27-2020 Covid (Moderna) Dr. Nancy Murray Work Phone: [facility] 04-16-2020 influenza, injectable,quadrivalent , preservative free, pediatric Dr. Roberto Murray Work Phone: [facility] Payers Date Payer Category Payer Private Health Insurance [id number] 2024 Self-pay [id number] 2021 Unknown [id number] 2013 Unknown [id number] Unknown [id number] [id number] Unknown [id number] [id number] [id number] Unknown [id number] [id number] [id number] Unknown [id number] [id number] Unknown [id number] [id number] [id number] Social History Date Type Detail Facility Start: 12-27-2021 End: 10-28-2023 Tobacco smoking status NHIS Unknown if ever smoked [facility] Start: 1960 Sex Assigned At Female [facility] Start: 10-28-2023 Tobacco smoking stat us NHIS Never smoked tobacco (finding) [facility] Evaluation note 11-11-2024 Note Date & Type Note Facility 11-11-2024 Evaluation note Diagnosis Onset Date Resolution Type 2 diabetes mellitus acute November 11, 2024 8:43am Generalized anxiety disorder chronic November 11, 2024 8: 43am Hyperlipidemia chronic November 11 025 8:43am Hypertension chronic November 11 8:43am [facility] Work Phone: Evaluation note 11-11-2024 Note Date & Type Note Facility 11-11-2024 Evaluation note Diagnosis Onset Date Resolution Generalized anxiety disorder chronic November 11, 2024 8: 43am Hyperlipidemia chronic May 2nd, 2 025 8:43am Hypertension chronic November 11 8:43am Type 2 diabetes mellitus chronic November 11, 2024 8:43am Health care maintenance acute A [id number] 8:18am Generalized anxiety disorder chronic February 24 8:18am Hypertension chronic February 24, 2025 8:18am Type 2 diabetes mellitus chronic February 24, 2025 8:18am [facility] Work Phone: Evaluation note Note Date & Type Note Facility Evaluation note Diagnosis Onset Date Generalized anxiety disorder chronic Hyperlipidemia chronic Hypertension chronic Lichen planopilaris chronic Generalized anxiety disorder chronic GERD (gastroesophageal reflux disease) chronic [facility] Work Phone: Evaluation note Note Date & Type Note Facility Evaluation note Diagnosis Onset Date Generalized anxiety disorder chronic GERD (gastroesophageal reflux disease) chronic Elevated liver enzymes acute Generalized anxiety disorder chronic GERD (gastroesophageal reflux disease) chronic [facility] Work Phone: Evaluation note Note Date & Type Note Facility Evaluation note Diagnosis Onset Date Elevated liver enzymes acute Generalized anxiety disorder chronic GERD (gastroesophageal reflux disease) chronic Encounter for routine gyneco logical examination noneactive Generalized anxiety disorder chronic Hyperlipidemia chronic Hypertension [facility] Work Phone: Evaluation note Note Date & Type Note Facility Evaluation note Diagnosis Onset Date Borderline type 2 diabetes mellitus chronic Generalized anxiety disorder chronic Hyperlipidemia chronic Hypertension chronic Trigger thumb acute Borderline type 2 diabetes mellitus chronic Brittle nails chronic Hyperlipidemia chronic Hypertension chronic [facility] Work Phone: Evaluation note Note Date & Type Note Facility Evaluation note Diagnosis Onset Date Encounter for routine gyneco logical examination noneactive Left foot pain acute Borderline type 2 diabetes mellitus chronic Generalized anxiety disorder chronic Hyperlipidemia chronic Hypertension [facility] Work Phone: Evaluation note Note Date & Type Note Facility Evaluation note Diagnosis Onset Date Left foot pain acute Borderline type 2 diabetes mellitus chronic Generalized anxiety disorder chronic Hyperlipidemia chronic Hypertension chronic Excessive cerumen in left ear canal acute Health care maintenance acut e Borderline type 2 diabetes mellitus chronic Generalized anxiety disorder chronic Hypertension [facility] Work Phone: Hospital Discharge instructions Note Date & Type Note Facility Hospital Discharge instructions [facility] Work Phone: Reason for referral (narrative) Note Date & Type Note Facility Reason for referral (narrative) No reason for referral information available [facility] Work Phone: Summary Purpose Family History No Family History Records Found Relationship Condition Age at Onset Recorded Date/T andrez mother Venous thrombosis Unknown High blood cholesterol Unknown Hypertension Unknown Malignant neoplasm of skin Unknown grandmother Malignant neoplasm of colon Unknown father Myocardial infarction Unknown Cardiac disease Unknown Advance Directives No Advanced Directives Records Found Advance Directive Response Recorded Date/ Time Living Will No May 08 9:53am Power of Government Property Inspector No May 08, 2021 9:53am Advance Directive Response Recorded Date/ Time Living Will No May 08 8:53am Power of Government Property Inspector No May 08, 2021 8:53am Chief Complaint and Reason for Visit Chief Complaint 4 M FU Anxiety Reason for Visit Generalized anxiety disorder Hyperlipidemia Hypertension Lichen planopilaris Generalized anxiety disorder GERD (gastroesophageal reflux disease) Chief Complaint Anxiety 4 M FU Reason for Visit Generalized anxiety disorder GERD (gastroesophageal reflux disease) Elevated liver enzymes Generalized anxiety disorder GERD (gastroesophageal reflux disease) Chief Complaint 4 M FU 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 Reason for Visit Elevated liver enzym es Generalized anxiety disorder GERD (gastroesophageal reflux disease) Encounter for routine gynecological examination Generalized anxiety disorder Hyperlipidemia Hypertension Chief Complaint 4 M FU 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 SCREENING Reason for Visit Elevated liver enzym es Generalized anxiety disorder GERD (gastroesophageal reflux disease) Encounter for routine gynecological examination Generalized anxiety disorder Hyperlipidemia Hypertension Chief Complaint 3 M FU 3 M FU Reason for Visit Borderline type 2 di abetes mellitus Generalized anxiety disorder Hyperlipidemia Hypertension Trigger thumb Borderline type 2 diabetes mellitus Brittle nails Hyperlipidemia Hypertension Chief Complaint 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 Reason for Visit Encounter for routin e gynecological examination Left foot pain Borderline type 2 diabetes mellitus Generalized anxiety disorder Hyperlipidemia Hypertension Chief Complaint 5 M FU 3 M FU Reason for Visit Left foot pain Borderline type 2 diabetes mellitus Generalized anxiety disorder Hyperlipidemia Hypertension Excessive cerumen in left ear canal Health care maintenance Borderline type 2 diabetes mellitus Generalized anxiety disorder Hypertension Chief Complaint 5 M FU 3 M FU SCREENING Reason for Visit Left foot pain Borderline type 2 diabetes mellitus Generalized anxiety disorder Hyperlipidemia Hypertension Excessive cerumen in left ear canal Health care maintenance Borderline type 2 diabetes mellitus Generalized anxiety disorder Hypertension Chief Complaint Admit Date 4 M FU November 11, 2024 8:43am 3 M FU February 24, 2025 8: 18am Reason for Visit Admit Date Type 2 diabetes mellitus November 11, 2024 8 :43am Generalized anxiety disorder November 11 8:43am Hyperlipidemia November 11, 2024 8:43am Hypertension November 11, 2024 8:43am Chief Complaint Admit Date 4 M FU November 11, 2024 8:43am 3 M FU February 24, 2025 8: 18am E ORDERS February 24, 2025 8: 58am Reason for Visit Admit Date Generalized anxiety disorder November 11 8:43am Hyperlipidemia November 11, 2024 8:43am Hypertension November 11, 2024 8:43am Type 2 diabetes mellitus November 11, 2024 8 :43am Health care maintenance February 24 8:18am Generalized anxiety disorder February 8:18am Hypertension February 24, 2025 8: 18am Type 2 diabetes mellitus February 24 8:18am Additional Source Comments INFORMATION SOURCE (unrecogn ized section and content) DATE CREATED AUTHOR 07/25/2020 [facility] DATE CREATED AUTHOR AUTHOR'S ORGANIZ ATION 03/26/2025 [facility] Goals (unrecognized section and content) Goals may be documented in a n alternate sectionGoals may be documented in an alternate sectionGoals may be documented in an alternate sectionGoals may be documented in an alternate sectionGoals may be documented in an alternate sectionGoals may be documented in an alternate sectionGoals may be documented in an alternate sectionGoals may be documented in an alternate sectionGoals may be documented in an alternate sectionGoals may be documented in an alternate sectionGoals may be documented in an alternate section Care Teams (unrecognized sec tion and content) Team Status: Active Member Role Status Dates Dr. Roberto Murray MD Family Provider Active Dr. Roberto Murray MD Primary Care Provider Active Team Status: Inactive Member Role Status Dates Dr. Roberto Murray MD Primary Care P esequiel, Attending Provider, Referring Provider Active Team Status: Inactive Member Role Status Dates Dr. Roberto Murray MD Primary Care Provider, Refer ring Provider Active Dr. Georgina Mckenzie MD Attending Provider Active Team Status: Inactive Member Role Status Dates Dr. Roberto Murray MD Primary Care Provider Active Dr. Anish Friend MD Attending Provider, Referring P ronaborder Active Team Status: Active Member Role/Relationship Status Dates Dr. Roberto Murray MD Family Provider Active Dr. Roberto Murray MD Primary Care Provider Active Team Status: Inactive Member Role/Relationship Status Dates Dr. Roberto Murray MD Primary Care Provider Active Start: November 11, 2024 End: November 11, 2024 Dr. Roberto Murray MD Attending Provider Active Start: November 11, 2024 End: November 11, 2024 Dr. Roberto Murray MD Referring Provider Active Start: November 11, 2024 End: November 11, 2024 Team Status: Inactive Member Role/Relationship Status Dates Dr. Roberto Murray MD Primary Care Provider Active Start: February 24, 2025 End: February 24, 2025 Dr. Roberto Murray MD Attending Provider Active Start: February 24, 2025 End: February 24, 2025 Dr. Roberto Murray MD Referring Provider Active Start: February 24, 2025 End: February 24, 2025 Team Status: Active Member Role/Relationship Status Dates Dr. Roberto Murray MD Primary Care Provider Active Team Status: Inactive Member Role/Relationship Status Dates Dr. Roberto Murray MD Primary Care Provider Active Start: February 24, 2025 End: February 24, 2025 Dr. Roberto Murray MD Attending Provider Active Start: February 24, 2025 End: February 24, 2025 Dr. Roberto Murray MD Referring Provider Active Start: February 24, 2025 End: February 24, 2025 FOR RECORDS PERTAINING TO PATIENTS WHO ARE OR HAVE BEEN ENROLLED IN A CHEMICAL DEPENDENCY/SUBSTANCEABUSE PROGRAM, SOME INFORMATION MAY BE OMITTED. This clinical summary was aggregated from multiple sources. Caution should be exercised in using it in the provision of clinical care. This summary normalizes information from multiple sources, and as a consequence, information in this document may materially change the coding, format and clinical context of patient data. In addition, data may be omitted in some cases. CLINICAL DECISIONS SHOULD BE BASED ON THE PRIMARY CLINICAL RECORDS. [facility] [employer] [facility]. provides no warranty or guarantee of the accuracy or completeness of information in this document.
--- NOTE | 2025-03-29 07:30 | BI_ITS ---
EXAM: SCRN MAMM (CAD)W/RASHARD BILAT DATE: 03/29/2025 CLINICAL HISTORY: F, Age 65 y/o , BREAST CANCER SCREENING No family history. Prior right ultrasound-guided breast biopsy. TECHNIQUE: Procedure Code: [id number] Modality: MG Procedure: SCRN MAMM (CAD)W/RASHARD BILAT COMPARISON: Prior exam(s) dated October 30, 2023.. FINDINGS: TISSUE DENSITY: The breasts are heterogeneously dense, which may obscure small masses. Bilateral Breast Mammographic Findings: No significant masses, calcifications or other abnormalities are identified. Once again, a tissue clip marker is seen in the upper lateral aspect of the right breast. No suspicious masses, areas of developing architectural distortion, or suspicious calcifications. There has been no significant interval change. BI/SCRN MAMM (CAD)W/RASHARD BILAT IMPRESSION: Stable bilateral screening mammogram. OVERALL FINAL ASSESSMENT BI-RADS 2: BENIGN RECOMMENDATION: Routine annual follow-up in 1 Year A letter with findings and recommendations will be mailed to the patient. Reading Location: [place] [id number]
== END | disposition home or self-care (01) ==
LOC: OPBD 06:54
PROVIDERS: PCP Internal Medicine; Referring Provider Internal Medicine; Visit Provider Internal Medicine
DX: Z12.31 Encounter for screening mammogram for malignant neoplasm of breast (principal); Z78.0 Asymptomatic menopausal state
CPT/HCPCS: 77063; 77067; 77080